=== PATIENT | female | born 1970 | race Caucasian/White ===

== ENCOUNTER 2017-10-05 14:30 | Inpatient (IN) | payer OTHER ==
[2017-10-05 19:30] LABS: ABS Basophils 0.1 10^3/ul (0-0.2); ABS Eosinophils 0.3 10^3/ul (0-0.6); ABS Lymphocytes 3.2 10^3/ul (1.0-4.8); ABS Neutrophils 8.4 10^3/ul (1.5-7.7); ABS Nucleated RBC 0 10^3/ul; Hematocrit 38 % (35-47); Hemoglobin 12.6 g/dl (12.0-16.0); Lymphocyte % 24.4 % (25-47); Mean Corpuscular HGB Conc 33 g/dl (31-36); Mean Corpuscular Hemoglobin 25 pg (27-31); Mean Corpuscular Volume 76 fL (80-97); Mean Platelet Volume 8 um3 (7.4-10.4); Nucleated Red Blood Cells % 0; Platelet Count 224 10^3/ul (150-450); Red Blood Count 5.06 10^6/ul (4.0-5.4); Red Cell Distribution Width 18 % (10.5-15); White Blood Count 12.9 10^3/ul (3.5-10.8)
[2017-10-05 19:39] LABS: EGFR Non-African American 108.1 (>60)
[2017-10-05] MEDS ORDERED: NS 0.9% 1000 ML* 1,000 ML IV ONE (19:48)
[2017-10-05] MEDS ORDERED: Iodixanol* (CONTRAST) 320 MG/ML 100 ML SDV IV ONE (21:33)
[2017-10-05] MEDS ORDERED: Morphine INJ* 4 MG/ML 1 ML CARPUJECT IV ONE ×2 (21:45→23:32)
--- NOTE | 2017-10-05 23:01 | ED ---
Giovany Miguel Stephanie, scribed for Ole Aldana MD on 10/05/17 at 1908 . Abdominal Pain/Female - HPI Summary HPI Summary: The pt is a 47 y/o F presenting to the ED with c/o abd pain that began 1 week ago. The abd pain is located in the LLQ and radiates into the chest. Symptoms include dizziness, SOB, nausea and diarrhea. The pt denies vomiting, dysuria and diaphoresis. - History of Current Complaint Chief Complaint: EDAbdPain Stated Complaint: LOWER LEFT ABD PAIN Time Seen by Provider: 10/05/17 19:03 Hx Obtained From: Patient Hx Last Menstrual Period: 2 weeks ago Onset/Duration: Gradual Onset, Lasting Weeks - 1, Still Present Timing: Constant Severity Currently: Moderate Pain Intensity: 8 Pain Scale Used: 0-10 Numeric Location: Discrete At: LLQ Radiates: Yes Radiates to: Chest Aggravating Factor(s): Nothing Alleviating Factor(s): Nothing Associated Signs and Symptoms: Positive: Dizzy, Nausea, Diarrhea, Other: - SOB Allergies/Adverse Reactions: Allergies Allergy/AdvReac Type Severity Reaction Status Date / Time MS Amoxicillin Allergy Unknown Unknown Verified 04/01/15 20:38 [From Augmentin] Reaction Details MS Clavulanic Acid Allergy Unknown Unknown Verified 04/01/15 20:38 [From Augmentin] Reaction Details Adhesive Tape [Paper Tape] Allergy Rash Verified 04/01/15 20:38 MS Erythromycin Allergy GI Upset Verified 04/01/15 20:38 [Erythromycin] MS Clarithromycin AdvReac Severe GI Upset Verified 04/01/15 20:38 [From Biaxin] bee stings Allergy Unknown Flushing Uncoded 04/01/15 20:38 PMH/Surg Hx/FS Hx/Imm Hx Endocrine/Hematology History: Reports: Hx Diabetes Denies: Hx Systemic Lupus Erythematosus, Hx Thyroid Disease Cardiovascular History: Reports: Hx Hypercholesterolemia, Hx Hypertension Denies: Hx Congestive Heart Failure, Hx Pacemaker/ICD Respiratory History: Reports: Hx Chronic Obstructive Pulmonary Disease (COPD), Hx Sleep Apnea GI History: Denies: Hx Gastroesophageal Reflux Disease History: Reports: Hx Kidney Stones, Hx Renal Disease - RENAL CALCULI Denies: Hx Dialysis Musculoskeletal History: Reports: Hx Arthritis - KNEES,HIPS,BACK, Hx Back Problems - chronic low back pain, Other Musculoskeletal History - bilateral knee pain, obesity, LUMBAR DDD Denies: Hx Rheumatoid Arthritis, Hx Osteoporosis Sensory History: Reports: Hx Contacts or Glasses - GLASSES Denies: Hx Hearing Aid Opthamlomology History: Reports: Hx Contacts or Glasses - GLASSES Neurological History: Reports: Hx Migraine - 1/MONTH Denies: Hx Dementia, Hx Seizures Psychiatric History: Reports: Hx Anxiety - prn Xanax, Hx Depression - Celexa, Other Psychiatric Issues/Disorders - 2 month period of homeless Denies: Hx Substance Abuse - Cancer History Hx Chemotherapy: No - Surgical History Surgery Procedure, Year, and Place: tubal ligation 1998. L BREAST I+D MASTITIS (MRSA). TONSILLECTOMY A CHILD. CHOLECYSTECTOMY Hx Anesthesia Reactions: No Infectious Disease History: No Infectious Disease History: Reports: Hx of Known/Suspected MRSA Denies: Hx Clostridium Difficile, Hx Hepatitis, Hx Human Immunodeficiency Virus (HIV), Hx Shingles, Hx Tuberculosis, Hx Known/Suspected VRE, Hx Known/ Suspected VRSA, History Other Infectious Disease, Traveled Outside the in Last 30 Days - Family History Known Family History: Positive: Cardiac Disease, Diabetes - Social History Occupation: Unemployed Lives: With Family Alcohol Use: None Substance Use Type: Reports: None Substance Use Comment - Amount & Last Used: uses a few times per year per patient Smoking Status (MU): Heavy Every Day Tobacco Smoker Type: Cigarettes Amount Used/How Often: >1/2 ppd Length of Time of Smoking/Using Tobacco: 30 YRS Have You Smoked in the Last Year: Yes Review of Systems Negative: Fever, Skin Diaphoresis Positive: Chest Pain Positive: Shortness Of Breath Positive: Abdominal Pain, Diarrhea, Nausea. Negative: Vomiting Negative: dysuria Neurological: Other - dizziness All Other Systems Reviewed And Are Negative: Yes Physical Exam - Summary Physical Exam Summary: Appearance: Well-appearing, Well-nourished Skin: Warm, Dry, No rash Eyes: Normal, PERRL, EOMI, sclera anicteric ENT: Normal Neck: Supple, nontender Respiratory: Clear to auscultation Cardiovascular: S1, S2, no murmur, no rub, no gallop Abdomen: Mild LLQ tenderness, no organomegaly Bowel sounds: Present Musculoskeletal: Normal, Strength/ROM Intact, no edema, pulses symmetrical Neurological: Normal, A&Ox3, cranial nerves II-XII WNL, follows commands, gait not tested, sensation intact to pin and light touch Psychiatric: affect normal, behavior appropriate, dressed appropriately, judgment intact Triage Information Reviewed: Yes Vital Signs On Initial Exam: Initial Vitals Temp Pulse Resp BP Pulse Ox 98.3 F 84 20 151/95 98 10/05/17 14:33 10/05/17 14:33 10/05/17 14:33 10/05/17 14:33 10/05/17 14:33 Vital Signs Reviewed: Yes Diagnostics - Vital Signs Vital Signs Temp Pulse Resp BP Pulse Ox 10/05/17 16:16 97.9 F 82 20 130/67 97 10/05/17 14:33 98.3 F 84 20 151/95 98 - Laboratory Result Diagrams: 10/05/17 19:15 10/05/17 19:15 Lab Statement: Any lab studies that have been ordered have been reviewed, and results considered in the medical decision making process. Abdominal Pain Fem Course/Dx - Course Course Of Treatment: Persistant pain requiring morphone. Awaiting urine. CT scan shows possible mass in the uterus and diverticilitis. Awaiting official CT reading. The pt will be a sign out to Dr. Castro at shift change. - Diagnoses Provider Diagnoses: Diverticulitis Discharge - Discharge Plan Condition: Stable Disposition: OTHER Discharge Disposition Comment: The pt will be a sign out to Dr. Castro at shift change. Referrals: Jo RODGERSPAdelia [Primary Care Provider] - The documentation as recorded by the Giovany fernandez Stephanie accurately reflects the service I personally performed and the decisions made by me, Ole Aldana MD.
[2017-10-06] MEDS ORDERED: Morphine INJ* 4 MG/ML 1 ML CARPUJECT IV ONE (00:36)
[2017-10-06] MEDS ORDERED: metroNIDAZOLE IV 500 MG/100ML* 500 MG/100 ML BAG IVPB ONE (00:37)
[2017-10-06] MEDS ORDERED: Levofloxacin 500 MG IVPREMIX(* 500 MG/100 ML BAG IVPB ONE (00:37)
--- NOTE | 2017-10-06 01:29 | ED ---
Tres Miguel Gabriel, scribed for Ling Castro MD on 10/06/17 at 0116 . Progress - Progress Note Progress Note: This patient was signed out from Dr. Aldana, pending disposition, awaiting CT. CT reveals acute sigmoid diverticulitis. We discussed patient care with Dr. Gutierrez and they accepted the patient for admittance Re-Evaluation - Re-Evaluation First Eval Re-Evaluation Time: 00:22 Change: Unchanged - Patient is still in pain. She reports significant pain in LLQ. Course/Dx - Course Course Of Treatment: This patient was signed out from Dr. Aldana, pending disposition, awaiting CT. CT reveals acute sigmoid diverticulitis. We discussed patient care with Dr. Gutierrez and they accepted the patient for admittance - Diagnoses Provider Diagnoses: Diverticulitis - Provider Notifications Discussed Care Of Patient With: Daria Gutierrez Time Discussed With Above Provider: 01:15 Instructed by Provider To: Admit As Inpatient The documentation as recorded by the Tres fernandez Gabriel accurately reflects the service I personally performed and the decisions made by Gloria pavon Abdul, MD.
[2017-10-06 02:27] LABS: Urine Appearance Clear; Urine Blood Negative (Negative); Urine Color Yellow; Urine Ketones Negative (Negative); Urine Protein Negative (Negative); Urine Specific Gravity > 1.060 (1.010-1.030); Urine Urobilinogen Negative (Negative)
[2017-10-06] MEDS ORDERED: Mouth Piece, Nicotine* 1 EACH CARTRIDGE INH PRN ×2 (02:51)
[2017-10-06] MEDS ORDERED: Dextrose 50% Syringe 50 ML* 25 GM/50 ML SYRINGE IV PUSH PRN (02:52)
[2017-10-06] MEDS ORDERED: NS 0.9% 1000 ML* 1,000 ML IV SCH (03:00)
[2017-10-06] MEDS ORDERED: Metoclopramide IV* 5 MG/ML 2 ML VIAL IV SLOW PU ONE (04:35)
[2017-10-06] MEDS: Morphine INJ* 4 MG/ML 1 ML CARPUJECT IV PRN ×4 (06:10→19:45)
--- NOTE | 2017-10-06 07:53 | RAD ---
INDICATION: Left lower quadrant pain COMPARISON: October 30, 2014 TECHNIQUE: Axial source images were obtained from the hemidiaphragms to the symphysis pubis following administration of oral and intravenous contrast. 141 mL Omnipaque 300 was utilized. Coronal and sagittal reconstructed images were acquired. Lung bases: The lung bases are clear. Liver: The liver is enlarged with findings of hepatic steatosis. There are no masses. There is no ductal dilatation. There is no focal mass or ductal dilatation Gallbladder: Cholecystectomy. Spleen: The spleen is normal in size. There are no masses. Pancreas: There is no focal pancreatic mass or ductal dilatation. Adrenal glands: There is no evidence of adrenal mass. Kidneys: The kidneys are normal in size and position. There are prompt nephrograms and there is prompt excretion bilaterally. There are no renal parenchymal masses. There is no evidence of nephrolithiasis. Adenopathy: There is no evidence of adenopathy by size criteria. Fluid collections: There are no free or localized fluid collections. Vessels:There are no significant atherosclerotic changes involving the aorta. There is no focal aneurysm. The iliac vessels are normal in caliber. The IVC appears normal. GI tract: There are no acute CT bowel findings. There is no obstruction. The stomach and small bowel appear normal. There is fluid in the left paracolic gutter with mild mucosal thickening at the level of the distal descending colon/proximal sigmoid colon. There are scattered diverticula. The CT findings are consistent with acute diverticulitis. There are no findings of obstruction or perforation. The remainder of the colon to include the appendix is normal. Pelvic organs: Uterus is unremarkable. There is a small left adnexal cyst. Bladder: There are no bladder masses. Abdominal and pelvic soft tissues: Is a tiny periumbilical hernia containing fat. There is a small right inguinal hernia containing fat. Osseous structures: There are no acute osseous findings. Other: None IMPRESSION: 1. CT findings of acute diverticulitis 2. Hepatomegaly with hepatic steatosis. 3. Cholecystectomy.
[2017-10-06 07:57] LABS: ABS Basophils 0.1 10^3/ul (0-0.2); ABS Eosinophils 0.2 10^3/ul (0-0.6); ABS Lymphocytes 2.7 10^3/ul (1.0-4.8); ABS Monocytes 0.9 10^3/ul (0-0.8); ABS Neutrophils 8.2 10^3/ul (1.5-7.7); ABS Nucleated RBC 0 10^3/ul; Eosinophil % 1.5 % (0-6); Hematocrit 41 % (35-47); Hemoglobin 13.4 g/dl (12.0-16.0); Lymphocyte % 22.2 % (25-47); Mean Corpuscular HGB Conc 33 g/dl (31-36); Mean Corpuscular Hemoglobin 25 pg (27-31); Mean Corpuscular Volume 76 fL (80-97); Mean Platelet Volume 8 um3 (7.4-10.4); Nucleated Red Blood Cells % 0.2; Platelet Count 232 10^3/ul (150-450); Red Blood Count 5.43 10^6/ul (4.0-5.4); Red Cell Distribution Width 18 % (10.5-15); White Blood Count 12.1 10^3/ul (3.5-10.8)
[2017-10-06 08:11] LABS: EGFR Non-African American 124.7 (>60)
[2017-10-06] MEDS: Insulin LISPRO* 1 UNITS UNIT SUBCUT SCH ×4 (09:38→22:23)
[2017-10-06] MEDS: metroNIDAZOLE TAB* 250 MG PO SCH (09:39)
[2017-10-06] MEDS: Nicotine PATCH 21 MG/24 HR* PATCH TRANSDERM SCH (09:39)
[2017-10-06] MEDS: metFORMIN* 1,000 MG TAB PO SCH (09:39)
[2017-10-06] MEDS: Heparin VIAL(*) 5000 UNITS/ML VIAL (FIVE THOUSAND) SUBCUT SCH ×2 (09:40→22:22)
--- NOTE | 2017-10-06 09:43 | PN ---
Hospitalist Progress Note Date of Service: 10/06/17 I have seen and examined Ms. Pinto this morning. She was admitted overnight with acute diverticulitis. Her pain is controlled at this time. She needs to stay inpatient for treatment at this time because she vomited up oral antibiotics this morning. She'd like to try full liquids today, so we will advance and if she is able to tolerate this and can keep pills down, she can complete her treatment as an outpatient.
--- NOTE | 2017-10-06 09:45 | PN ---
Hospitalist Progress Note Date of Service: 10/06/17 I discussed her poorly controlled bp with her. She is supposed to take lisinopril at home, but says she "weaned herself off" all of her medicines. She is unable to take Po at this time, but should be discontinued back on lisinopril.
[2017-10-06] MEDS: Ondansetron INJ* 2 MG/ML VIAL IV PRN ×2 (10:52→18:18)
--- NOTE | 2017-10-06 11:32 | HP ---
CC: ANTONIO Byrnes * HISTORY AND PHYSICAL: DATE OF ADMISSION: 10/06/17 PRIMARY CARE PROVIDER: Formerly, ANTONIO Byrnes at [facility]. She is to establish with a new provider there this week. CHIEF COMPLAINT: Abdominal pain. HISTORY OF PRESENT ILLNESS: Ms. Pinto is a 47-year-old female who has a history of type 2 diabetes, obstructive sleep apnea, depression and anxiety, hypertension and a past history of diverticulitis in 2007, who presents to the emergency room with complaints of abdominal pain. The patient states approximately 1 week ago, she began to have left lower quadrant abdominal pain. She states she thought it was her ovary. Eventually, the pain became so bad on 10/05/17 that she presented to the emergency room for evaluation. The patient states that she has chronic diarrhea and this is unchanged. She does note that she has had a low-grade fever. She also states that she will at one point feel very hot, then she will feel chilled. She does state that her appetite has been okay over the last couple of days. She has felt nauseous, but she has not vomited until after she received Zofran in the emergency room. The patient does note that she had several attacks of diverticulitis in 2007, but had been without issues since. PAST MEDICAL HISTORY: 1. Type 2 diabetes. 2. Obstructive sleep apnea. 3. Depression/anxiety. PAST SURGICAL HISTORY: 1. Cholecystectomy. 2. Tubal ligation. 3. Tonsillectomy. MEDICATIONS: The patient states currently she is only taking metformin 1000 mg daily. Her previous home medication list included: 1. Percocet 5/325 one tab p.o. q.4 hours p.r.n. pain. 2. Metformin 1000 mg p.o. twice daily. 3. Ambien 10 mg p.o. q.h.s. 4. Simvastatin 20 mg p.o. q.h.s. 5. Sumatriptan 25 mg p.o. daily p.r.n. migraine. 6. Orphenadrine citrate 100 mg p.o. q.h.s. 7. Zofran 4 mg p.o. q.8 hours. 8. Omeprazole 20 mg p.o. q.h.s. 9. Meloxicam 15 mg p.o. q.h.s. 10. Lisinopril 2.5 mg p.o. q.h.s. 11. Gabapentin 600 mg p.o. q.h.s. 12. Fenofibrate 145 mg p.o. q.h.s. 13. Vitamin B12 500 mcg p.o. q.h.s. 14. Celexa 60 mg p.o. q.h.s. 15. Vitamin D 1200 units p.o. q.h.s. 16. Buspirone 5 mg p.o. q.h.s. ALLERGIES: BEES, CLARITHROMYCIN, ERYTHROMYCIN, ADHESIVE TAPE, AUGMENTIN. FAMILY HISTORY: Mom at the age of 67, she had diabetes and hyperlipidemia. Dad at the age of 57 of an [place]. SOCIAL HISTORY: The patient is an active smoker of 1-pack per day. She denies any alcohol use. She uses marijuana on a daily basis. 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 She is , she has 2 children. Her , Silverio is her healthcare proxy. REVIEW OF SYSTEMS: A complete 11-system review of systems is obtained. Pertinent positives and negatives are as per HPI. In addition, the patient does state that at times she notes that it is difficult to initiate a swallow and she states this has become more noticeable recently. Additionally, she states that she has candidal rash in her skin folds. PHYSICAL EXAMINATION GENERAL: The patient is a well-developed, morbidly obese, middle-aged female, lying in the bed, in no acute distress. VITAL SIGNS: Blood pressure 137/76, pulse 79, respirations 18, temp 97.9, and O2 sat 98% on room air. HEENT: Pupils are equal and round. Extraocular muscles are intact. Oropharynx is clear. Oral mucosa is moist. The patient is edentulous on the top. There is no submandibular, cervical, or supraclavicular adenopathy. Thyroid is not enlarged. No thyroid nodules noted. PULMONARY: Lungs are clear to auscultation bilaterally. CARDIAC: Normal S1 and S2. Regular rate and rhythm. I do not appreciate any murmurs. There is no lower extremity edema. ABDOMEN: Bowel sounds are present. Abdomen is soft and nondistended. She is mildly tender to palpation in the left lower quadrant. MUSCULOSKELETAL: There is no cyanosis or clubbing of the digits. There is full active range of motion of all 4 extremities. SKIN: Warm and dry. There are no rashes. NEUROLOGIC: Cranial nerves II through XII are grossly intact. Sensation is intact to light touch throughout. Strength is 5/5 and symmetric in both upper and lower extremities bilaterally. PSYCH: The patient is alert. She is oriented x3. Affect appears appropriate. DIAGNOSTIC STUDIES/LAB DATA: WBC 12.9, hemoglobin 12.6, hematocrit 38, platelets 224. Sodium 132, potassium 3.9, chloride 102, CO2 23, BUN 10, creatinine 0.60, glucose 206, calcium 8.8. Bilirubin 0.3, AST 15, ALT 17, alk phos 87, albumin 3.7, amylase 29, and lipase 30. Urinalysis is pending. CT abdomen and pelvis reveals a segment of thickened sigmoid colon with adjacent pericolonic inflammatory stranding. There is sigmoid diverticula and findings are compatible with acute sigmoid diverticulitis. There is a minimal amount of adjacent free fluid. Additionally, there is a 2.5 cm left adnexal cyst noted. ASSESSMENT AND PLAN: Ms. Pinto is a 47-year-old female who has a past history of diverticulitis in 2007, type 2 diabetes, obstructive sleep apnea and hypertension, who presents to the emergency room with complaints of left lower quadrant abdominal pain and is found to have probable acute diverticulitis on CT scan. 1. Acute diverticulitis. The patient will be admitted and started on IV antibiotics and normal saline. The patient's symptoms appear to be relatively mild at this point. She will be started on a clear liquid diet. Her symptoms will be monitored and her diet advanced as tolerated. I suspect she will be able to be discharged home in the next 24 to 48 hours. At this point, no surgical evaluation is necessary. The patient will be on Cipro and Flagyl; however, the patient does think that she developed severe nausea and vomiting after receiving the IV Flagyl. We will try it orally; however, if she has issues with the Flagyl, a different antibiotic combination may need to be considered. 2. Type 2 diabetes. The patient will be maintained on her usual dose of metformin 1000 mg daily. Her fingersticks will be checked a.c. and h.s. and she will be placed on a lispro sliding scale. Additionally, a hemoglobin A1c will be obtained. 3. Hypertension. The patient's blood pressure is under fair control. She states that she stopped all of her oral hypertensives previously as she was not happy that she was on so many medications. Her blood pressure will be monitored and if her blood pressure starts to elevate, an antihypertensive will need to be added back. 4. Obstructive sleep apnea. The patient will be maintained on BiPAP 14/8 with 2 L of O2 with sleep. 5. DVT prophylaxis. According to the Adult Thrombosis Prophylaxis Risk Factor Assessment Guide, the patient has a total risk factor score of 2 making her moderate risk. She will be placed on heparin 5000 units subcutaneous q.12 hours. 6. Code status is full. TIME SPENT: Sixty-five minutes was spent admitting this patient. [id number]/CPS #: [id number] SCOTT
[2017-10-06] MEDS: Nicotine Inhaler* 10 MG AMP INH PRN (15:06)
[2017-10-06] MEDS ORDERED: PROCHLORPERAZINE INJ 5 MG/ML 2 ML VIAL ONE (22:09)
[2017-10-06] MEDS: PROCHLORPERAZINE INJ 5 MG/ML 2 ML VIAL IV PRN (22:14)
[2017-10-07] MEDS: metroNIDAZOLE TAB* 250 MG PO SCH ×3 (00:22→20:51)
[2017-10-07] MEDS: Ondansetron INJ* 2 MG/ML VIAL IV PRN ×4 (00:29→19:56)
[2017-10-07] MEDS: Morphine INJ* 4 MG/ML 1 ML CARPUJECT IV PRN ×5 (00:29→20:54)
[2017-10-07] MEDS ORDERED: Ciprofloxacin 400MG IVPREMIX(* 400 MG/200 ML BAG IVPB SCH (02:00)
[2017-10-07] MEDS: Nicotine Patch Removal NOTE FOLLOW UP SCH ×2 (07:31→21:44)
[2017-10-07] MEDS: Heparin VIAL(*) 5000 UNITS/ML VIAL (FIVE THOUSAND) SUBCUT SCH ×2 (07:38→20:53)
[2017-10-07] MEDS: metFORMIN* 1,000 MG TAB PO SCH (07:38)
[2017-10-07 07:39] LABS: ABS Basophils 0 10^3/ul (0-0.2); ABS Eosinophils 0.2 10^3/ul (0-0.6); ABS Lymphocytes 2.2 10^3/ul (1.0-4.8); ABS Monocytes 0.7 10^3/ul (0-0.8); ABS Nucleated RBC 0 10^3/ul; Eosinophil % 2.6 % (0-6); Hematocrit 38 % (35-47); Hemoglobin 12.4 g/dl (12.0-16.0); Mean Corpuscular HGB Conc 32 g/dl (31-36); Mean Corpuscular Hemoglobin 25 pg (27-31); Mean Corpuscular Volume 77 fL (80-97); Mean Platelet Volume 8 um3 (7.4-10.4); Nucleated Red Blood Cells % 0; Platelet Count 192 10^3/ul (150-450); Red Blood Count 4.99 10^6/ul (4.0-5.4); Red Cell Distribution Width 18 % (10.5-15); White Blood Count 8.2 10^3/ul (3.5-10.8)
[2017-10-07] MEDS: Nicotine PATCH 21 MG/24 HR* PATCH TRANSDERM SCH (07:39)
[2017-10-07 07:49] LABS: EGFR Non-African American 124.7 (>60)
[2017-10-07] MEDS: Insulin LISPRO* 1 UNITS UNIT SUBCUT SCH ×4 (08:31→21:42)
[2017-10-07] MEDS ORDERED: Magnesium Hydroxide LIQ* 30 ML UDC PO ONE (09:50)
[2017-10-07] MEDS ORDERED: Magnesium Hydroxide LIQ* 30 ML UDC PO PRN (09:50)
--- NOTE | 2017-10-07 09:59 | PN ---
Subjective Date of Service: 10/07/17 Interval History: pt c/o "gurgling" in her abd but no BM's x 3 days. continues ot have nausea but able to eat small amounts for full liquids. abd pain in LLQ Objective Active Medications: Buspirone HCl (Buspar Tab*) 5 mg PO QPM [facility] Citalopram Hydrobromide (Celexa Tab*) 60 mg PO QPM [facility] Device (Nicotine Mouth Piece*) 1 each INH .USE WITH NICOTROL PRN PRN Reason: CRAVING Last Admin: 10/06/17 15:06 Dose: 1 each Dextrose (D50w Syringe 50 Ml*) 12.5 gm IV PUSH .FOR FS < 60 - SS PRN PRN Reason: FS < 60 Gabapentin (Neurontin Cap(*)) 600 mg PO BEDTIME [facility] Heparin Sodium (Porcine) (Heparin Vial(*)) 5,000 units SUBCUT Q12HR [facility] Last Admin: 10/07/17 07:38 Dose: 5,000 units Ciprofloxacin/Dextrose (Cipro 400 Mg Ivpremix(*)) 400 mg in 200 mls @ 200 mls/ hr IVPB Q12H [facility] Last Admin: 10/07/17 02:26 Dose: 200 mls/hr Insulin Human Lispro (Humalog*) 0 units SUBCUT ACHS [facility] PRN Reason: Protocol Last Admin: 10/07/17 08:31 Dose: 6 units Magnesium Hydroxide (Milk Of Magnesia Liq*) 30 ml PO ONCE ONE Stop: 10/07/17 09:51 Magnesium Hydroxide (Milk Of Magnesia Liq*) 30 ml PO Q6H PRN PRN Reason: CONSTIPATION Metformin HCl (Glucophage*) 1,000 mg PO DAILY [facility] Last Admin: 10/07/17 07:38 Dose: 1,000 mg Metronidazole (Flagyl Tab*) 500 mg PO BID [facility] Last Admin: 10/07/17 07:38 Dose: 500 mg Morphine Sulfate (Morphine Inj (Syringe)*) 4 mg IV Q4H PRN PRN Reason: PAIN Last Admin: 10/07/17 07:38 Dose: 4 mg Nicotine (Nicotine Inhaler*) 10 mg INH Q2H PRN PRN Reason: CRAVING Last Admin: 10/06/17 15:06 Dose: 10 mg Nicotine (Nicotine Patch 21 Mg/24 Hr*) 1 patch TRANSDERM DAILY@0800 [facility] Last Admin: 10/07/17 07:39 Dose: Not Given Omeprazole (Prilosec Cap*) 20 mg PO QPM [facility] Ondansetron HCl (Zofran Inj*) 4 mg IV Q6H PRN PRN Reason: NAUSEA Last Admin: 10/07/17 07:38 Dose: 4 mg Oxycodone/Acetaminophen (Percocet 5/325 Tab*) 1 tab PO Q4H PRN PRN Reason: PAIN Pharmacy Profile Note (Nicotine Patch Removal Note*) 1 note FOLLOW UP 2100 [facility] Last Admin: 10/07/17 07:31 Dose: 1 note Prochlorperazine Edisylate (Compazine Inj*) 10 mg IV Q6H PRN PRN Reason: NAUSEA Last Admin: 10/06/17 22:14 Dose: 10 mg Zolpidem Tartrate (Ambien Tab*) 10 mg PO BEDTIME [facility] Vital Signs - 8 hr 10/07/17 10/07/17 10/07/17 03:25 04:03 07:31 Temperature 97.3 F 97.7 F Pulse Rate 62 65 Respiratory 17 14 17 Rate Blood Pressure 138/56 134/72 (mmHg) O2 Sat by Pulse 95 97 Oximetry 10/07/17 10/07/17 10/07/17 07:38 08:23 08:32 Temperature Pulse Rate Respiratory 18 18 16 Rate Blood Pressure (mmHg) O2 Sat by Pulse Oximetry Oxygen Devices in Use Now: None Appearance: 47 yo obese f in nAD, AAOx3 Eyes: No Scleral Icterus, PERRLA Ears/Nose/Mouth/Throat: NL Teeth, Lips, Gums, Mucous Membranes Moist Neck: NL Appearance and Movements; NL JVP, Trachea Midline Respiratory: Symmetrical Chest Expansion and Respiratory Effort, Clear to Auscultation Cardiovascular: NL Sounds; No Murmurs; No JVD, RRR Abdominal: - - LLQ tenderness, no rebound, no guarding, BS hypoactive Lymphatic: No Cervical Adenopathy Extremities: No Edema, No Clubbing, Cyanosis Skin: No Rash or Ulcers, No Nodules or Sclerosis Neurological: Alert and Oriented x 3, NL Muscle Strength and Tone Result Diagrams: 10/07/17 07:09 10/07/17 07:09 Microbiology and Other Data: Microbiology 10/06/17 05:45 Nasal Screen MRSA (PCR)(MANDO) - Final Nasal Mrsa Not Detected Assess/Plan/Problems-Billing Assessment: 47 yo f with h/o obesity, DM2, ALANNA with acute diverticulitis - Patient Problems (1) Acute diverticulitis of intestine Comment: cont cipro/Flagyl Tander in LLQ and still problems with PO intake Will place on inpatient Cont full liquid diet (2) Severe obstructive sleep apnea Comment: Cont CPAP (3) DM2 (diabetes mellitus, type 2) Comment: cont ISS, metformin held due to CT with contrast on 10/05/17 (4) DVT prophylaxis Comment: HSQ Status and Disposition: OBV switched to inpatient
[2017-10-07] MEDS: cefTRIAXone(*) 1 GM in D5W 50 ML BAG* 50 ML IVPB SCH (11:12)
[2017-10-07] MEDS: Omeprazole CAP* 20 MG PO SCH (17:51)
[2017-10-07] MEDS: Citalopram TAB* 40 MG PO SCH (17:52)
[2017-10-07] MEDS: busPIRone TAB* 5 MG PO SCH (17:52)
[2017-10-07] MEDS ORDERED: Citalopram TAB* 40 MG PO SCH (18:00)
[2017-10-07] MEDS: Zolpidem TAB* 10 MG PO SCH (20:52)
[2017-10-07] MEDS: Gabapentin CAP(*) 300 MG PO SCH (20:52)
[2017-10-08] MEDS: PROCHLORPERAZINE INJ 5 MG/ML 2 ML VIAL IV PRN ×3 (00:53→16:48)
[2017-10-08] MEDS: Morphine INJ* 4 MG/ML 1 ML CARPUJECT IV PRN ×3 (00:54→09:17)
[2017-10-08] MEDS: Ondansetron INJ* 2 MG/ML VIAL IV PRN ×2 (05:11→12:33)
[2017-10-08] MEDS: Insulin LISPRO* 1 UNITS UNIT SUBCUT SCH ×4 (09:12→20:48)
[2017-10-08] MEDS: Heparin VIAL(*) 5000 UNITS/ML VIAL (FIVE THOUSAND) SUBCUT SCH ×2 (09:13→20:41)
[2017-10-08] MEDS: Nicotine PATCH 21 MG/24 HR* PATCH TRANSDERM SCH (09:14)
[2017-10-08] MEDS: Nicotine Inhaler* 10 MG AMP INH PRN (09:16)
[2017-10-08] MEDS: metroNIDAZOLE TAB* 250 MG PO SCH ×2 (09:16→20:41)
--- NOTE | 2017-10-08 09:47 | PN ---
Subjective Date of Service: 10/08/17 Interval History: pt c/o occasional "pinch" in the LLQ of abd. Still "a little nauseated", but requests to have diet advanced. Had several loose BM's yesterday Objective Active Medications: Buspirone HCl (Buspar Tab*) 5 mg PO QPM [facility] Last Admin: 10/07/17 17:52 Dose: 5 mg Citalopram Hydrobromide (Celexa Tab*) 40 mg PO QPM [facility] Last Admin: 10/07/17 17:52 Dose: 40 mg Device (Nicotine Mouth Piece*) 1 each INH .USE WITH NICOTROL PRN PRN Reason: CRAVING Last Admin: 10/06/17 15:06 Dose: 1 each Dextrose (D50w Syringe 50 Ml*) 12.5 gm IV PUSH .FOR FS < 60 - SS PRN PRN Reason: FS < 60 Gabapentin (Neurontin Cap(*)) 600 mg PO BEDTIME [facility] Last Admin: 10/07/17 20:52 Dose: 600 mg Heparin Sodium (Porcine) (Heparin Vial(*)) 5,000 units SUBCUT Q12HR [facility] Last Admin: 10/08/17 09:13 Dose: 5,000 units Ceftriaxone Sodium 1 gm/ (Dextrose) 50 mls @ 200 mls/hr IVPB Q24H [facility] Last Admin: 10/07/17 11:12 Dose: 200 mls/hr Insulin Human Lispro (Humalog*) 0 units SUBCUT ACHS [facility] PRN Reason: Protocol Last Admin: 10/08/17 09:12 Dose: 3 units Magnesium Hydroxide (Milk Of Magnesia Liq*) 30 ml PO Q6H PRN PRN Reason: CONSTIPATION Metronidazole (Flagyl Tab*) 500 mg PO BID [facility] Last Admin: 10/08/17 09:16 Dose: 500 mg Morphine Sulfate (Morphine Inj (Syringe)*) 4 mg IV Q4H PRN PRN Reason: PAIN Last Admin: 10/08/17 09:17 Dose: 4 mg Nicotine (Nicotine Inhaler*) 10 mg INH Q2H PRN PRN Reason: CRAVING Last Admin: 10/08/17 09:16 Dose: 10 mg Nicotine (Nicotine Patch 21 Mg/24 Hr*) 1 patch TRANSDERM DAILY@0800 [facility] Last Admin: 10/08/17 09:14 Dose: 1 patch Omeprazole (Prilosec Cap*) 20 mg PO QPM [facility] Last Admin: 10/07/17 17:51 Dose: 20 mg Ondansetron HCl (Zofran Inj*) 4 mg IV Q6H PRN PRN Reason: NAUSEA Last Admin: 10/08/17 05:11 Dose: 4 mg Oxycodone/Acetaminophen (Percocet 5/325 Tab*) 1 tab PO Q4H PRN PRN Reason: PAIN Pharmacy Profile Note (Nicotine Patch Removal Note*) 1 note FOLLOW UP 2100 [facility] Last Admin: 10/07/17 21:44 Dose: Not Given Prochlorperazine Edisylate (Compazine Inj*) 10 mg IV Q6H PRN PRN Reason: NAUSEA Last Admin: 10/08/17 09:17 Dose: 10 mg Zolpidem Tartrate (Ambien Tab*) 10 mg PO BEDTIME [facility] Last Admin: 10/07/17 20:52 Dose: 10 mg Vital Signs - 8 hr 10/08/17 10/08/17 10/08/17 02:42 02:43 03:09 Temperature 97.7 F Pulse Rate 63 Respiratory 18 18 14 Rate Blood Pressure 167/57 (mmHg) O2 Sat by Pulse 94 Oximetry 10/08/17 10/08/17 10/08/17 05:12 06:28 08:00 Temperature Pulse Rate Respiratory 18 18 18 Rate Blood Pressure (mmHg) O2 Sat by Pulse Oximetry 10/08/17 09:17 Temperature Pulse Rate Respiratory 18 Rate Blood Pressure (mmHg) O2 Sat by Pulse Oximetry Oxygen Devices in Use Now: None Appearance: 47 obese F in NAD, AAox3 Eyes: No Scleral Icterus, PERRLA Ears/Nose/Mouth/Throat: NL Teeth, Lips, Gums, Mucous Membranes Moist Neck: NL Appearance and Movements; NL JVP, Trachea Midline Respiratory: Symmetrical Chest Expansion and Respiratory Effort, Clear to Auscultation Cardiovascular: NL Sounds; No Murmurs; No JVD, RRR Abdominal: No Hepatosplenomegaly, - - mild LLQ tenderness, no rebound, no guarding, BS+ Lymphatic: No Cervical Adenopathy Extremities: No Edema, No Clubbing, Cyanosis Skin: No Rash or Ulcers, No Nodules or Sclerosis Neurological: Alert and Oriented x 3, NL Muscle Strength and Tone Result Diagrams: 10/09/17 09:18 10/09/17 09:18 Microbiology and Other Data: Microbiology 10/06/17 05:45 Nasal Screen MRSA (PCR)(MANDO) - Final Nasal Mrsa Not Detected Assess/Plan/Problems-Billing Assessment: 47 yo f with h/o obesity, DM2, ALANNA with acute diverticulitis - Patient Problems (1) Acute diverticulitis of intestine Comment: cont Flagyl, cipro switched to Ceftriaxone due to potential interaction with pt's anidepressants Tender in LLQ , improving. will advance to regular ADA diet. (2) Severe obstructive sleep apnea Comment: Cont CPAP (3) DM2 (diabetes mellitus, type 2) Comment: cont ISS, metformin held due to CT with contrast on 10/05/17 (4) DVT prophylaxis Comment: HSQ Status and Disposition: inpatient
[2017-10-08] MEDS: cefTRIAXone(*) 1 GM in D5W 50 ML BAG* 50 ML IVPB SCH (11:04)
[2017-10-08] MEDS: oxyCODONE/Acetamin 5/325 MG* TAB PO PRN ×3 (12:33→20:47)
[2017-10-08] MEDS: busPIRone TAB* 5 MG PO SCH (16:47)
[2017-10-08] MEDS: Citalopram TAB* 40 MG PO SCH (16:48)
[2017-10-08] MEDS: Omeprazole CAP* 20 MG PO SCH (16:48)
[2017-10-08] MEDS: Gabapentin CAP(*) 300 MG PO SCH (20:40)
[2017-10-08] MEDS: Zolpidem TAB* 10 MG PO SCH (20:41)
[2017-10-08] MEDS: Nicotine Patch Removal NOTE FOLLOW UP SCH (20:43)
[2017-10-09] MEDS: oxyCODONE/Acetamin 5/325 MG* TAB PO PRN ×3 (00:52→09:32)
[2017-10-09] MEDS: PROCHLORPERAZINE INJ 5 MG/ML 2 ML VIAL IV PRN (08:10)
[2017-10-09] MEDS: Nicotine PATCH 21 MG/24 HR* PATCH TRANSDERM SCH (08:15)
[2017-10-09] MEDS: Heparin VIAL(*) 5000 UNITS/ML VIAL (FIVE THOUSAND) SUBCUT SCH (08:25)
[2017-10-09] MEDS: Insulin LISPRO* 1 UNITS UNIT SUBCUT SCH (08:26)
[2017-10-09] MEDS: metroNIDAZOLE TAB* 250 MG PO SCH (08:28)
[2017-10-09 09:14] VITALS: BP 141/64
[2017-10-09 09:33] LABS: ABS Basophils 0 10^3/ul (0-0.2); ABS Eosinophils 0.2 10^3/ul (0-0.6); ABS Monocytes 0.6 10^3/ul (0-0.8); ABS Neutrophils 4.5 10^3/ul (1.5-7.7); ABS Nucleated RBC 0 10^3/ul; Eosinophil % 2.4 % (0-6); Hematocrit 39 % (35-47); Hemoglobin 12.6 g/dl (12.0-16.0); Lymphocyte % 27.3 % (25-47); Mean Corpuscular HGB Conc 33 g/dl (31-36); Mean Corpuscular Hemoglobin 25 pg (27-31); Mean Corpuscular Volume 77 fL (80-97); Mean Platelet Volume 8 um3 (7.4-10.4); Nucleated Red Blood Cells % 0; Platelet Count 198 10^3/ul (150-450); Red Blood Count 5.05 10^6/ul (4.0-5.4); Red Cell Distribution Width 18 % (10.5-15); White Blood Count 7.3 10^3/ul (3.5-10.8)
[2017-10-09 09:44] LABS: EGFR Non-African American 102.2 (>60)
[2017-10-09] MEDS: cefTRIAXone(*) 1 GM in D5W 50 ML BAG* 50 ML IVPB SCH (11:04)
--- NOTE | 2017-10-10 02:36 | DS ---
DISCHARGE SUMMARY: DATE OF ADMISSION: 10/06/17 DATE OF DISCHARGE: 10/09/17 PRIMARY CARE PROVIDER: Formerly, Adelia Osorio NP in [facility]. She is now going to follow up with another provider at [facility]. DISCHARGE DIAGNOSIS: Acute diverticulitis. SECONDARY DIAGNOSES: 1. Diabetes. 2. Obstructive sleep apnea. 3. Depression/anxiety. MEDICATIONS AT DISCHARGE: Include: 1. Cefdinir 300 mg p.o. b.i.d. for 10 days total. 2. Flagyl 500 mg p.o. 3 times a day for 10 days total. 3. Gabapentin 600 mg p.o. q.h.s. 4. Percocet 1 tablet every 4 hours p.r.n. pain. The patient was prescribed a total of 20 tablets. I-STOP was checked. Last time she had a narcotic prescription was in May 2017. 5. Zofran 4 mg every 8 hours p.r.n. 6. Omeprazole 20 mg daily. 7. Metformin 1000 mg b.i.d. Please note that the patient stated that most of her medications that she admitted to taking at the admission she actually is not taking and most of them were at this point discontinued since the patient was not interested in taking them anyway and those included: 1. Celexa. 2. Simvastatin. 3. Ambien. 4. Orphenadrine. 5. Meloxicam. 6. Lisinopril. 7. Fenofibrate. 8. Vitamin B12. 9. Vitamin D. 10. BuSpar. The patient is to follow up with her primary care provider of her choice to reestablish care and to decide if she is planning to take some more of the medications. LABORATORY DATA: During the hospital stay included: On 10/07/17, white blood cell count of 8.2, hemoglobin 12.4, hematocrit 38, and platelets 192. Sodium 133, potassium 3.8, chloride 103, carbon dioxide 26, BUN 5, creatinine 0.53. The patient's hemoglobin A1c was 9.2 on 10/05/17. Microbiology study showed stool cultures that are still pending at the time of dictation. The patient had CT of abdomen and pelvis obtained on 10/05/17, impression: "CT findings of acute diverticulitis. Hepatomegaly with hepatic steatosis. Cholecystectomy." HOSPITALIZATION COURSE: Parth Pinto is a 47-year-old female with history of obesity and BMI of 51 as well as diabetes and dyslipidemia who presented to the hospital complaining of abdominal pain. For further details of the patient's presentation, please see history and physical dictated at admission. Shortly, the patient's stay was complicated by continuous nausea and abdominal pain in the left lower quadrant. By the time of discharge, her abdominal pain nearly resolved and she tolerated regular diet. She is going to be discharged home with recommendations to follow up with her primary care provider at [facility]. PHYSICAL EXAM AT THE TIME OF DISCHARGE: Blood pressure of 141/64, heart rate of 61 and regular, respiratory rate 16, oxygen saturation 95% on room air, temperature 97.3. General: The patient is a very pleasant 47-year-old female, who is in no acute distress. Alert, awake and oriented x3. HEENT: Head atraumatic, normocephalic. Eyes: Pupils are equal and reactive to light and accommodation. Oropharynx clear. Mucosa moist. Neck: Supple. No JVD. No bruits bilaterally. Cardiovascular: Regular rate and rhythm. No murmur. Respiratory: Clear to auscultation bilaterally. Abdomen: Soft, minimally tender in the left lower quadrant with no rebound, no guarding. Bowel sounds are present in all 4 quadrants. Extremities: There is no edema. Pulses are 2 + bilaterally. No clubbing or cyanosis. On evaluation of the skin, no ecchymotic areas or rashes noted. On neuro evaluation, speech is clear. Cranial nerves II through XII grossly intact. Motor strength is 5/5 bilaterally. Please note that this is a short summary of the patient's hospitalization, please refer to further medical records for details. TIME SPENT: Approximately 40 minutes were spent on the patient's discharge. [id number]/[facility] #: [id number] MTDD
== END 2017-10-09 12:10 | disposition home health service (06) | DRG 244 ==
LOC: ED 14:30 → MED 10-06 02:49 → OBSVTOIN 10-07 09:50
PROVIDERS: ADMIT Hospitalist; ATTEND Internal Medicine
DX: K57.32 Diverticulitis of large intestine without perforation or abscess without bleeding (principal); E27.8 Other specified disorders of adrenal gland; E66.01 Morbid (severe) obesity due to excess calories; K76.0 Fatty (change of) liver, not elsewhere classified; Z68.43 Body mass index [BMI] 50.0-59.9, adult; R16.0 Hepatomegaly, not elsewhere classified; E11.9 Type 2 diabetes mellitus without complications; G47.33 Obstructive sleep apnea (adult) (pediatric); F41.9 Anxiety disorder, unspecified; F32.9 Major depressive disorder, single episode, unspecified; I10 Essential (primary) hypertension; J44.9 Chronic obstructive pulmonary disease, unspecified; G89.29 Other chronic pain; M17.0 Bilateral primary osteoarthritis of knee; M47.9 Spondylosis, unspecified; G43.909 Migraine, unspecified, not intractable, without status migrainosus; F17.210 Nicotine dependence, cigarettes, uncomplicated; E78.00 Pure hypercholesterolemia, unspecified; M54.9 Dorsalgia, unspecified; Z90.49 Acquired absence of other specified parts of digestive tract; Z82.49 Family history of ischemic heart disease and other diseases of the circulatory system; Z83.3 Family history of diabetes mellitus; Z56.0 Unemployment, unspecified; Z88.1 Allergy status to other antibiotic agents; Z91.040 Latex allergy status; Z87.442 Personal history of urinary calculi; Z98.51 Tubal ligation status; Z86.14 Personal history of Methicillin resistant Staphylococcus aureus infection; Z79.84 Long term (current) use of oral hypoglycemic drugs; Z91.030 Bee allergy status
CPT/HCPCS: 36415; 74177; 80048; 80053; 81003; 82150; 83036; 83690; 85025; 86140; 87045; 87046; 87641; 87899; 94660; 94760; 96374; 99285; A9270-GY; G0378; J0696; J0744; J0780; J1644; J1956; J2270; J2405; J2765; J3490; Q9967

== ENCOUNTER 2018-09-05 12:57 | Emergency (ER) | payer OTHER ==
[2018-09-05 14:14] LABS: Hematocrit 43 % (35-47); Hemoglobin 14.2 g/dl (12.0-16.0); Mean Corpuscular HGB Conc 33 g/dl (31-36); Mean Corpuscular Hemoglobin 25 pg (27-31); Mean Corpuscular Volume 78 fL (80-97); Mean Platelet Volume 8.4 fL (7.4-10.4); Platelet Count 207 10^3/ul (150-450); Red Cell Distribution Width 17 % (10.5-15)
[2018-09-05 14:43] LABS: Albumin 4.2 g/dL (3.2-5.2); Albumin/Globulin Ratio 1.4 (1-3); BUN/Creatinine Ratio 12.7 (8-20); Calcium 9.1 mg/dL (8.6-10.3); EGFR Non-African American 101.7 (>60); Globulin 2.9 g/dL (2-4); Potassium 4.1 mmol/L (3.5-5.0); Total Bilirubin 0.3 mg/dL (0.2-1.0); Total Protein 7.1 g/dL (6.4-8.9)
[2018-09-05] MEDS ORDERED: Morphine VIAL* 4 MG/ML VIAL (1 ml vial) IV ONE ×2 (14:51→16:06)
[2018-09-05] MEDS ORDERED: Ondansetron INJ* 2 MG/ML VIAL IV ONE ×2 (14:51→16:06)
[2018-09-05] MEDS ORDERED: NS 0.9% 1000 ML* 1,000 ML IV ONE (14:52)
--- NOTE | 2018-09-05 14:54 | ED ---
GI/ HPI - HPI Summary HPI Summary: 48-year-old female presents with abdominal pain today. States she had some bloody stool. it was just streaks of blood. States she's had looser stools. She admits nausea but denies any vomiting. States feels similar to her diverticulitis pain she has had in the past. She states her last episode was last year. She states she is also having pain that radiates up to her chest. It is located on the left side of her chest. She states it is like twinges of pain. She has history of chest pain. She admits occasional shortness of breath. She denies any palpitations. No sore throat. No fever. Has had her gallbladder removed. Has a history of diabetes. - History of Current Complaint Chief Complaint: EDAbdPain Time Seen by Provider: 09/05/18 14:41 Stated Complaint: BLOOD IN STOOL/CRAMPS/CHEST PAIN Hx Last Menstrual Period: 2 weeks ago Pain Intensity: 7 - Additional Pertinent History Primary Care Physician: KILEY - Allergy/Home Medications Allergies/Adverse Reactions: Allergies Allergy/AdvReac Type Severity Reaction Status Date / Time Adhesive Tape [Paper Tape] Allergy Rash Verified 09/05/18 13:09 amoxicillin [From Augmentin] Allergy Unknown Verified 09/05/18 13:09 Reaction Details clavulanic acid Allergy Unknown Verified 09/05/18 13:09 [From Augmentin] Reaction Details clarithromycin [From Biaxin] AdvReac Severe GI Upset Verified 09/05/18 13:09 erythromycin base AdvReac GI Upset Verified 09/05/18 13:09 bee stings Allergy Unknown Flushing Uncoded 09/05/18 13:09 Home Medications: Home Medications Cetirizine* [ZyrTEC 10 MG TAB*] 10 mg PO DAILY 09/05/18 [History Confirmed 09/05] Dapagliflozin Propanediol [Farxiga] 5 mg PO DAILY 09/05/18 [History Confirmed ] Ergocalciferol (Vitamin D2) [Vitamin D2] 50,000 unit PO WEEKLY 09/05/18 [ History Confirmed 09/05/18] Gabapentin TAB(NF) [Neurontin 600 mg TAB(NF)] 600 mg PO TID 09/05/18 [History Confirmed 09/05/18] Lisinopril [Lisinopril 2.5 MG-] 2.5 mg PO DAILY 09/05/18 [History Confirmed 03/17] Meloxicam(NF) [Mobic(NF)] 15 mg PO DAILY WITH MEAL 09/05/18 [History Confirmed 09/05/18] Metformin ER (NF) 1,000 mg PO BID 09/05/18 [History Confirmed 09/05/18] Simvastatin TAB(NF) [Zocor(NF)] 20 mg PO BEDTIME 09/05/18 [History Confirmed 03/17] hydrOXYzine HCL TAB* [Atarax 25 MG TAB*] 25 mg PO BID PRN 09/05/18 [History Confirmed 09/05/18] PMH/Surg Hx/FS Hx/Imm Hx Endocrine/Hematology History: Reports: Hx Diabetes Denies: Hx Systemic Lupus Erythematosus, Hx Thyroid Disease Cardiovascular History: Reports: Hx Hypercholesterolemia, Hx Hypertension Denies: Hx Congestive Heart Failure, Hx Pacemaker/ICD Respiratory History: Reports: Hx Chronic Obstructive Pulmonary Disease (COPD), Hx Sleep Apnea - CPAP GI History: Reports: Hx Diverticulosis Denies: Hx Gastroesophageal Reflux Disease History: Reports: Hx Kidney Stones, Hx Renal Disease - RENAL CALCULI Denies: Hx Dialysis Musculoskeletal History: Reports: Hx Arthritis - KNEES,HIPS,BACK, Hx Back Problems - chronic low back pain, Other Musculoskeletal History - bilateral knee pain, obesity, LUMBAR DDD Denies: Hx Rheumatoid Arthritis, Hx Osteoporosis Sensory History: Reports: Hx Contacts or Glasses - GLASSES, Hx Deafness - Right ear deaf Denies: Hx Hearing Aid, Other Sensory Impairments Opthamlomology History: Reports: Hx Contacts or Glasses - GLASSES Denies: Other Sensory Impairments Neurological History: Reports: Hx Migraine - 1/MONTH Denies: Hx Dementia, Hx Seizures Psychiatric History: Reports: Hx Anxiety - prn Xanax, Hx Depression - Celexa, Other Psychiatric Issues/Disorders - 2 month period of homeless Denies: Hx Substance Abuse - Cancer History Hx Chemotherapy: No - Surgical History Surgery Procedure, Year, and Place: tubal ligation 1998. L BREAST I+D MASTITIS (MRSA). TONSILLECTOMY A CHILD. CHOLECYSTECTOMY Hx Anesthesia Reactions: No Infectious Disease History: No Infectious Disease History: Reports: Hx of Known/Suspected MRSA Denies: Hx Clostridium Difficile, Hx Hepatitis, Hx Human Immunodeficiency Virus (HIV), Hx Shingles, Hx Tuberculosis, Hx Known/Suspected VRE, Hx Known/ Suspected VRSA, History Other Infectious Disease, Traveled Outside the [place] in Last 30 Days - Family History Known Family History: Positive: Cardiac Disease, Diabetes - Social History Alcohol Use: None Substance Use Type: Reports: Marijuana Substance Use Comment - Amount & Last Used: uses a few times per year per patient Smoking Status (MU): Heavy Every Day Tobacco Smoker Type: Cigarettes Amount Used/How Often: >1/2 ppd Length of Time of Smoking/Using Tobacco: 30 YRS Have You Smoked in the Last Year: Yes Review of Systems Negative: Fever Negative: Chest Pain Negative: Shortness Of Breath Positive: Abdominal Pain, Diarrhea, Nausea, Other - bloody stool. Negative: Vomiting All Other Systems Reviewed And Are Negative: Yes Physical Exam Triage Information Reviewed: Yes Vital Signs On Initial Exam: Initial Vitals Temp Pulse Resp BP Pulse Ox 99.2 F 81 20 163/86 99 09/05/18 13:05 09/05/18 13:05 09/05/18 13:05 09/05/18 13:05 09/05/18 13:05 Vital Signs Reviewed: Yes Appearance: Positive: Well-Appearing Skin: Positive: Warm, Dry Head/Face: Positive: Normal Head/Face Inspection Eyes: Positive: Normal, Conjunctiva Clear ENT: Positive: Pharynx normal Respiratory/Lung Sounds: Positive: Clear to Auscultation, Breath Sounds Present Cardiovascular: Positive: Normal, RRR Abdomen Description: Positive: Soft, Other: - tenderness LLQ, no rebound Bowel Sounds: Positive: Present Musculoskeletal: Positive: Normal Neurological: Positive: Normal Psychiatric: Positive: Normal Diagnostics - Vital Signs Vital Signs Temp Pulse Resp BP Pulse Ox 09/05/18 13:05 99.2 F 81 20 163/86 99 - Laboratory Lab Results: Lab Results 09/05/18 09/05/18 Range/Units 13:12 13:12 WBC 16.0 H (3.5-10.8) 10^3/ul RBC 5.60 H (4.00-5.40) 10^6/ul Hgb 14.2 (12.0-16.0) g/dl Hct 43 (35-47) % MCV 78 L (80-97) fL MCH 25 L (27-31) pg MCHC 33 (31-36) g/dl RDW 17 H (10.5-15) % Plt Count 207 (150-450) 10^3/ul MPV 8.4 (7.4-10.4) fL Sodium 135 (135-145) mmol/L Potassium 4.1 (3.5-5.0) mmol/L Chloride 102 (101-111) mmol/L Carbon Dioxide 26 (22-32) mmol/L Anion Gap 7 (2-11) mmol/L BUN 8 (6-24) mg/dL Creatinine 0.63 (0.51-0.95) mg/dL Est GFR ( Amer) 123.1 (>60) Est GFR (Non-Af Amer) 101.7 (>60) BUN/Creatinine Ratio 12.7 (8-20) Glucose 190 H (70-100) mg/dL Calcium 9.1 (8.6-10.3) mg/dL Total Bilirubin 0.30 (0.2-1.0) mg/dL AST 16 (13-39) U/L ALT 19 (7-52) U/L Alkaline Phosphatase 97 (34-104) U/L Total Protein 7.1 (6.4-8.9) g/dL Albumin 4.2 (3.2-5.2) g/dL Globulin 2.9 (2-4) g/dL Albumin/Globulin Ratio 1.4 (1-3) Result Diagrams: 09/05/18 13:12 09/05/18 13:12 Lab Statement: Any lab studies that have been ordered have been reviewed, and results considered in the medical decision making process. - CT abd CT Interpretation Completed By: Radiologist Summary of CT Findings: IMPRESSION: #. The constellation of findings is most consistent with acute diverticulitis at the. proximal sigmoid colon. Moderate perienteric inflammatory change and potential few tiny. foci of extra enteric gas without evidence for a loculated peritoneal abscess collection. Negative for ascites. Negative for resulting bowel obstruction. #. This current site of acute diverticulitis represents a different site of diverticulitis. compared with the more proximal inflammation on the October 05, 2017 exam. - EKG No standard instances Cardiac Rate: NL EKG Rhythm: Sinus Rhythm EKG Comparison: No Significant Change Summary of EKG Findings: sinus rhythm Re-Evaluation - Re-Evaluation First Eval Re-Evaluation Time: 16:06 Change: Improved Comment: feeling better but pain is returning GIGU Course/Dx - Course Course Of Treatment: 48-year-old female presents with abdominal pain today. States she had some bloody stool. it was just streaks of blood. States she's had looser stools. She admits nausea but denies any vomiting. States feels similar to her diverticulitis pain she has had in the past. She states her last episode was last year. She states she is also having pain that radiates up to her chest. It is located on the left side of her chest. She states it is like twinges of pain. She has history of chest pain. She admits occasional shortness of breath. She denies any palpitations. No sore throat. No fever. on exam tenderness LLQ. no hemorrhoids or blood seen on rectal. hemoccult is negative. wbc 16. hemoglobin and hemocrat normal. troponin zero. lipase normal. crp elevated. CT shows diverticultitis. discussed with patient and patient would like to be admitted. discussed with dr colorado who says that should try a trial of outpatient care and follow up with primary. discussed with patient and patient says will try oral medications trial. gave pain medication and will placed on cipro and flagyl. patient understand and agrees with plan. - Diagnoses Differential Diagnoses - Female: Colitis, Diverticulitis, Urinary Tract Infection Provider Diagnoses: Diverticulitis Discharge - Sign-Out/Discharge Documenting (check all that apply): Patient Departure - Discharge Plan Condition: Good Disposition: HOME Prescriptions: Ciprofloxacin TAB* [Cipro 500 MG TAB*] 500 mg PO BID #19 tab HYDROcodone/ACETAMIN 5-325 MG* [[place] 5-325 TAB*] 1 tab PO Q6H PRN #16 tab MDD 4 PRN Reason: Pain metroNIDAZOLE [Flagyl 500 MG TAB] 500 mg PO TID #29 tab Ondansetron ODT TAB* [Zofran 4 MG Odt TAB*] 4 mg PO Q6H PRN #16 tab.odt PRN Reason: Nausea Patient Education Materials: Diverticulitis (ED) Referrals: Lia Frye [Primary Care Provider] - Additional Instructions: Take ciprofloxacin twice a day for 10 days, first dose given in ED Take Flagyl every 8 hours for 10 days, first dose given in ED Take Zofran every 6 hours for nausea Follow clear liquid diet until symptoms improve take norco every 6 hours for pain follow up with primary Return to ED if unable to keep anything down, develop fever, or any new or worsening symptoms - Billing Disposition and Condition Condition: GOOD Disposition: Home
[2018-09-05] MEDS ORDERED: Iodixanol* (CONTRAST) 320 MG/ML 100 ML SDV IV ONE (15:05)
[2018-09-05 15:15] LABS: C Reactive Protein 18.26 mg/L (<8.01)
[2018-09-05 15:32] LABS: Urine Appearance Clear; Urine Bacteria Absent (Absent); Urine Bilirubin Negative (Negative); Urine Blood 3+ (Negative); Urine Color Yellow; Urine Glucose 3+(>=500 mg/dL) (Negative); Urine Ketones Negative (Negative); Urine Nitrite Negative (Negative); Urine Protein Negative (Negative); Urine Red Blood Cell 3+(>10/hpf) (Absent); Urine Specific Gravity 1.009 (1.010-1.030); Urine Urobilinogen Negative (Negative); Urine White Blood Cell Trace(0-5/hpf) (Absent)
[2018-09-05] MEDS ORDERED: Ketorolac INJ* 30 MG/ML 1 ML VIAL IV PUSH ONE (17:13)
[2018-09-05] MEDS ORDERED: Ciprofloxacin 400MG IVPREMIX(* 400 MG/200 ML BAG IVPB ONE (17:30)
[2018-09-05] MEDS ORDERED: metroNIDAZOLE IV 500 MG/100ML* 500 MG/100 ML BAG IVPB ONE (17:32)
[2018-09-05] MEDS ORDERED: Ondansetron ODT TAB* 4 MG PO ONE (18:06)
[2018-09-05 19:43] VITALS: BP 155/72
--- NOTE | 2018-09-07 07:05 | ED ---
Progress - Progress Note Progress Note: Pt's prelim urine cx reveals 10-25,000 strep dysgalactiae. Dx'd w/ diverticulitis and started on cipro and flagyl. No change in rx. Re-Evaluation - Re-Evaluation First Eval Re-Evaluation Time: 16:06 Change: Improved Comment: feeling better but pain is returning Course/Dx - Course Course Of Treatment: 48-year-old female presents with abdominal pain today. States she had some bloody stool. it was just streaks of blood. States she's had looser stools. She admits nausea but denies any vomiting. States feels similar to her diverticulitis pain she has had in the past. She states her last episode was last year. She states she is also having pain that radiates up to her chest. It is located on the left side of her chest. She states it is like twinges of pain. She has history of chest pain. She admits occasional shortness of breath. She denies any palpitations. No sore throat. No fever. on exam tenderness LLQ. no hemorrhoids or blood seen on rectal. hemoccult is negative. wbc 16. hemoglobin and hemocrat normal. troponin zero. lipase normal. crp elevated. CT shows diverticultitis. discussed with patient and patient would like to be admitted. discussed with dr colorado who says that should try a trial of outpatient care and follow up with primary. discussed with patient and patient says will try oral medications trial. gave pain medication and will placed on cipro and flagyl. patient understand and agrees with plan. - Diagnoses Provider Diagnoses: Diverticulitis Discharge - Sign-Out/Discharge Documenting (check all that apply): Post-Discharge Follow Up - Discharge Plan Condition: Good Disposition: HOME Prescriptions: Ciprofloxacin TAB* [Cipro 500 MG TAB*] 500 mg PO BID #19 tab HYDROcodone/ACETAMIN 5-325 MG* [[place] 5-325 TAB*] 1 tab PO Q6H PRN #16 tab MDD 4 PRN Reason: Pain metroNIDAZOLE [Flagyl 500 MG TAB] 500 mg PO TID #29 tab Ondansetron ODT TAB* [Zofran 4 MG Odt TAB*] 4 mg PO Q6H PRN #16 tab.odt PRN Reason: Nausea Patient Education Materials: Diverticulitis (ED) Referrals: Lia Frye [Primary Care Provider] - Additional Instructions: Take ciprofloxacin twice a day for 10 days, first dose given in ED Take Flagyl every 8 hours for 10 days, first dose given in ED Take Zofran every 6 hours for nausea Follow clear liquid diet until symptoms improve take norco every 6 hours for pain follow up with primary Return to ED if unable to keep anything down, develop fever, or any new or worsening symptoms - Billing Disposition and Condition Condition: GOOD Disposition: Home
== END 2018-09-05 19:45 | disposition home or self-care (01) ==
LOC: ED 12:57
DX: K57.92 Diverticulitis of intestine, part unspecified, without perforation or abscess without bleeding (principal); E11.8 Type 2 diabetes mellitus with unspecified complications; Z79.84 Long term (current) use of oral hypoglycemic drugs; I10 Essential (primary) hypertension; E78.00 Pure hypercholesterolemia, unspecified; Z87.442 Personal history of urinary calculi; K21.9 Gastro-esophageal reflux disease without esophagitis; F41.9 Anxiety disorder, unspecified; F32.9 Major depressive disorder, single episode, unspecified; F17.210 Nicotine dependence, cigarettes, uncomplicated
CPT/HCPCS: 36415; 74177; 80053; 81003; 81015; 82272; 83690; 84484; 85027; 86140; 87086; 87088; 93005; 96361; 96374; 96375; 96376; 99284; A9270-GY; J0744; J1885; J2270; J2405; J3490; Q9967

== ENCOUNTER 2018-12-07 17:57 | Emergency (ER) | payer OTHER ==
[2018-12-07 19:17] LABS: Urine Appearance Cloudy; Urine Bilirubin Negative (Negative); Urine Blood Negative (Negative); Urine Color Yellow; Urine Glucose 3+(>=500 mg/dL) (Negative); Urine Ketones Negative (Negative); Urine Nitrite Negative (Negative); Urine Protein Negative (Negative); Urine Specific Gravity 1.029 (1.010-1.030); Urine Urobilinogen Negative (Negative)
[2018-12-07 19:18] LABS: ABS Basophils 0.1 10^3/ul (0-0.2); ABS Eosinophils 0.2 10^3/ul (0-0.6); ABS Lymphocytes 3.2 10^3/ul (1.0-4.8); ABS Monocytes 0.6 10^3/ul (0-0.8); ABS Neutrophils 5.8 10^3/ul (1.5-7.7); ABS Nucleated RBC 0 10^3/ul; Eosinophil % 1.7 %; Hematocrit 41 % (33-41); Hemoglobin 13.5 g/dL (12.0-16.0); Lymphocyte % 32.6 %; Mean Corpuscular HGB Conc 33 g/dL (31-36); Mean Corpuscular Hemoglobin 26 pg (27-31); Mean Corpuscular Volume 80 fL (80-97); Mean Platelet Volume 8.3 fL (7.4-10.4); Nucleated Red Blood Cells % 0; Platelet Count 219 10^3/uL (150-450); Red Blood Count 5.11 10^6 /uL (3.70-4.87); Red Cell Distribution Width 17 % (10.5-15); White Blood Count 9.8 10^3/uL (3.5-10.8)
--- NOTE | 2018-12-07 19:18 | ED ---
Back Pain - HPI Summary HPI Summary: Patient complains of ongoing intermittent bilateral back pain, left significantly worse than right x 1.5 months. Pain described as intermittent, progressive, worse with movement and position. Denies trauma, fever, cough, sore throat, CP, SOB, N/3/D, abdominal pain, change in urine, change in BM, vaginal symptoms. Patient states her primary care doctor sent her here to the ED for evaluation of possible kidney stones due to Januvia medication, which patient started 2 months ago. Patient states she has been here seen here for same sx on prior visits to the ED, but last two prior charts indicate abdominal pain and chest pain. 09/05/18 CT abdomen and pelvis positive for diverticulitis with prescription for hydrocodone, Cipro, Flagyl. 09/30/18 complaint was abdominal pain, chest pain, diagnosed with gastritis, Rx for hydrocodone and omeprazole. Medical history is DM to, neuropathy, chronic neck and back pain, HDL, HTN. - History of Current Complaint Chief Complaint: EDFlankPain Stated Complaint: LT SIDE KIDNEY PAIN PER PT Time Seen by Provider: 12/07/18 18:49 Hx Obtained From: Patient Hx Last Menstrual Period: 2 weeks ago Onset/Duration: Gradual Onset, Lasting Weeks, Still Present Onset/Duration: Started Weeks Ago Timing: Intermittent Back Pain Location: Is Discrete @ Severity Initially: Mild Severity Currently: Severe Pain Intensity: 10 Pain Scale Used: 0-10 Numeric Character: Sharp, Aching Aggravating Symptom(s): Movement Alleviating Symptom(s): Rest Associated Signs And Symptoms: Positive: Negative - Allergies/Home Medications Allergies/Adverse Reactions: Allergies Allergy/AdvReac Type Severity Reaction Status Date / Time Adhesive Tape [Paper Tape] Allergy Rash Verified 12/07/18 18:16 amoxicillin [From Augmentin] Allergy Unknown Verified 12/07/18 18:16 Reaction Details clavulanic acid Allergy Unknown Verified 12/07/18 18:16 [From Augmentin] Reaction Details dapagliflozin [From Farxiga] Allergy See Comment Verified 12/07/18 18:16 clarithromycin [From Biaxin] AdvReac Severe GI Upset Verified 12/07/18 18:16 erythromycin base AdvReac GI Upset Verified 12/07/18 18:16 bee stings Allergy Unknown Flushing Uncoded 12/07/18 18:16 PMH/Surg Hx/FS Hx/Imm Hx Endocrine/Hematology History: Reports: Hx Diabetes Denies: Hx Systemic Lupus Erythematosus, Hx Thyroid Disease Cardiovascular History: Reports: Hx Hypercholesterolemia, Hx Hypertension Denies: Hx Congestive Heart Failure, Hx Pacemaker/ICD Respiratory History: Reports: Hx Chronic Obstructive Pulmonary Disease (COPD), Hx Sleep Apnea - CPAP GI History: Reports: Hx Diverticulosis Denies: Hx Gastroesophageal Reflux Disease History: Reports: Hx Kidney Stones, Hx Renal Disease - RENAL CALCULI Denies: Hx Dialysis Musculoskeletal History: Reports: Hx Arthritis - KNEES,HIPS,BACK, Hx Back Problems - chronic low back pain, Other Musculoskeletal History - bilateral knee pain, obesity, LUMBAR DDD Denies: Hx Rheumatoid Arthritis, Hx Osteoporosis Sensory History: Reports: Hx Contacts or Glasses - GLASSES, Hx Deafness - Right ear deaf Denies: Hx Hearing Aid, Other Sensory Impairments Opthamlomology History: Reports: Hx Contacts or Glasses - GLASSES Denies: Other Sensory Impairments Neurological History: Reports: Hx Migraine - 1/MONTH Denies: Hx Dementia, Hx Seizures Psychiatric History: Reports: Hx Anxiety - prn Xanax, Hx Depression - Celexa, Other Psychiatric Issues/Disorders - 2 month period of homeless Denies: Hx Substance Abuse - Cancer History Hx Chemotherapy: No - Surgical History Surgery Procedure, Year, and Place: tubal ligation 1998. L BREAST I+D MASTITIS (MRSA). TONSILLECTOMY A CHILD. CHOLECYSTECTOMY Hx Anesthesia Reactions: No Infectious Disease History: No Infectious Disease History: Reports: Hx of Known/Suspected MRSA Denies: Hx Clostridium Difficile, Hx Hepatitis, Hx Human Immunodeficiency Virus (HIV), Hx Shingles, Hx Tuberculosis, Hx Known/Suspected VRE, Hx Known/ Suspected VRSA, History Other Infectious Disease, Traveled Outside the [place] in Last 30 Days - Family History Known Family History: Positive: Cardiac Disease, Diabetes - Social History Alcohol Use: None Substance Use Type: Reports: Marijuana Substance Use Comment - Amount & Last Used: uses a few times per year per patient Smoking Status (MU): Heavy Every Day Tobacco Smoker Type: Cigarettes Amount Used/How Often: >1/2 ppd Length of Time of Smoking/Using Tobacco: 30 YRS Have You Smoked in the Last Year: Yes Review of Systems Constitutional: Negative Eyes: Negative ENT: Negative Cardiovascular: Negative Respiratory: Negative Gastrointestinal: Negative Genitourinary: Negative Musculoskeletal: Other Skin: Negative Neurological: Negative Psychological: Normal All Other Systems Reviewed And Are Negative: Yes Physical Exam - Summary Physical Exam Summary: Tenderness to paraspinal muscles on left side lower thoracic spine. No CVA tenderness bilaterally. No tenderness to palpation of paraspinal muscles of right side thoracic or lumbar spine. No ecchymosis, erythema, swelling, deformity, masses noted to back. No bony point tenderness on spine. PMS intact distally on bilateral lower extremities. Abdomen soft nontender. Lung sounds clear to auscultation bilaterally. RRR. Triage Information Reviewed: Yes Vital Signs On Initial Exam: Initial Vitals Temp Pulse Resp BP Pulse Ox 98 F 75 20 158/83 98 12/07/18 18:11 12/07/18 18:11 12/07/18 18:11 12/07/18 18:11 12/07/18 18:11 Vital Signs Reviewed: Yes Appearance: Positive: Well-Appearing Skin: Positive: Warm Head/Face: Positive: Normal Head/Face Inspection Eyes: Positive: Normal Neck: Positive: Supple Respiratory/Lung Sounds: Positive: Clear to Auscultation Cardiovascular: Positive: Normal Abdomen Description: Positive: Nontender Musculoskeletal: Positive: Normal Neurological: Positive: Normal Psychiatric: Positive: Normal AVPU Assessment: Alert - [place] Coma Scale Best Eye Response: 4 - Spontaneous Best Motor Response: 6 - Obeys Commands Best Verbal Response: 5 - Oriented Coma Scale Total: 15 Diagnostics - Vital Signs Vital Signs Temp Pulse Resp BP Pulse Ox 12/07/18 18:11 98 F 75 20 158/83 98 - Laboratory Result Diagrams: 12/07/18 19:10 12/07/18 19:10 Lab Statement: Any lab studies that have been ordered have been reviewed, and results considered in the medical decision making process. Back Pain Course/Dx - Course Course Of Treatment: Patient complains of ongoing intermittent bilateral back pain, left significantly worse than right x 1.5 months. Pain described as intermittent, progressive, worse with movement and position. Denies trauma, fever, cough, sore throat, CP, SOB, N/3/D, abdominal pain, change in urine, change in BM, vaginal symptoms. Patient states her primary care doctor sent her here to the ED for evaluation of possible kidney stones due to Januvia medication, which patient started 2 months ago. Patient states she has been here seen here for same sx on prior visits to the ED, but last two prior charts indicate abdominal pain and chest pain. 09/05/18 CT abdomen and pelvis positive for diverticulitis with prescription for hydrocodone, Cipro, Flagyl. 09/30/18 complaint was abdominal pain, chest pain, diagnosed with gastritis, Rx for hydrocodone and omeprazole. Medical history is DM to, neuropathy, chronic neck and back pain, HDL, HTN. Physical exam:Tenderness to paraspinal muscles on left side lower thoracic spine. No CVA tenderness bilaterally. No tenderness to palpation of paraspinal muscles of right side thoracic or lumbar spine. No ecchymosis, erythema, swelling, deformity, masses noted to back. No bony point tenderness on spine. PMS intact distally on bilateral lower extremities. Abdomen soft nontender. Lung sounds clear to auscultation bilaterally. RRR. Vital signs within normal limits. Labs unremarkable. UA negative. Back pain significantly improved with Valium by mouth 5 mg. Diagnosis muscle spasm. Rx for same. - Diagnoses Provider Diagnoses: Muscle spasm Discharge - Sign-Out/Discharge Documenting (check all that apply): Patient Departure Patient Received Moderate/Deep Sedation with Procedure: No - Discharge Plan Condition: Stable Disposition: HOME Prescriptions: Diazepam TAB(*) [Valium TAB(*)] 5 mg PO TID PRN 2 Days #6 tab MDD 3 tabs PRN Reason: Pain Lidocaine 1 each TP Q12H 2 Days #4 adh..patch Patient Education Materials: Muscle Spasm (ED) Referrals: Lia Frye [Primary Care Provider] - Additional Instructions: Take medications as directed for muscle spasm. May also use heating pads. Rest as much as possible for the next few days. No heavy lifting. Light duty only work. Follow-up with primary care. Return to the ED for any new or worsening symptoms. - Billing Disposition and Condition Condition: STABLE Disposition: Home
[2018-12-07] MEDS: Diazepam TAB(*) 5 MG PO ONE (19:19)
[2018-12-07] MEDS: NS 0.9% 1000 ML** 1,000 ML IV ONE (19:30)
[2018-12-07 19:36] LABS: ALT 22 U/L (7-52); AST 16 U/L (13-39); Albumin 3.9 g/dL (3.2-5.2); Albumin/Globulin Ratio 1.3 (1-3); Alkaline Phosphatase 94 U/L (34-104); Anion Gap 4 mmol/L (2-11); BUN/Creatinine Ratio 12.7 (8-20); Blood Urea Nitrogen 8 mg/dL (6-24); C Reactive Protein 11.55 mg/L (<8.01); CO2 Carbon Dioxide 29 mmol/L (22-32); Calcium 9.1 mg/dL (8.6-10.3); Chloride 106 mmol/L (101-111); EGFR African American 123.1 (>60); EGFR Non-African American 101.7 (>60); Globulin 3.1 g/dL (2-4); Glucose 193 mg/dL (70-100); Potassium 3.9 mmol/L (3.5-5.0); Sodium 139 mmol/L (135-145)
[2018-12-07 19:42] LABS: HCG Pregnancy < 0.60 mIU/mL
[2018-12-07 20:25] VITALS: BP 127/82
== END 2018-12-07 20:23 | disposition home or self-care (01) ==
LOC: ED 17:57
DX: M62.830 Muscle spasm of back (principal); E11.9 Type 2 diabetes mellitus without complications; I10 Essential (primary) hypertension; E78.5 Hyperlipidemia, unspecified; F17.210 Nicotine dependence, cigarettes, uncomplicated
CPT/HCPCS: 36415; 80053; 81003; 83605; 83690; 84702; 85025; 86140; 96360; 99283; A9270-GY

== ENCOUNTER 2019-10-23 12:46 | Emergency (ER) | payer OTHER ==
[2019-10-23] MEDS ORDERED: Ketorolac *IM* INJ* 60 MG/2 ML VIAL IM ONE (13:43)
[2019-10-23] MEDS ORDERED: HYDROcodone/ACETAMIN 5-325 MG* 1 TAB PO ONE (13:43)
--- NOTE | 2019-10-23 15:21 | ED ---
Back Pain - HPI Summary HPI Summary: Pt. is a 49 y.o who presents to the ER for low back pain x several days. Pt. denies any injuries or falls. Pt. notes hx of back pain but today pain is different. Notes radicular pain into both legs. Notes chronic neuropathy to legs without change. Denies bowel or bladder incontinence or retention. Denies fever, urinary sxs, abd. pain, cp, sob. Has been taking tylenol and motrin without relief. Movement makes sxs worse. Nothing improves. pain. - History of Current Complaint Chief Complaint: EDBackInjuryPain Stated Complaint: BACK PAIN PER PT Time Seen by Provider: 10/23/19 13:32 Hx Obtained From: Patient Hx Last Menstrual Period: 2 weeks ago Pain Intensity: 10 - Allergies/Home Medications Allergies/Adverse Reactions: Allergies Allergy/AdvReac Type Severity Reaction Status Date / Time Adhesive Tape [Paper Tape] Allergy Rash Verified 10/23/19 13:03 amoxicillin [From Augmentin] Allergy Unknown Verified 10/23/19 13:03 Reaction Details clavulanic acid Allergy Unknown Verified 10/23/19 13:03 [From Augmentin] Reaction Details dapagliflozin [From Farxiga] Allergy See Comment Verified 10/23/19 13:03 clarithromycin [From Biaxin] AdvReac Severe GI Upset Verified 10/23/19 13:03 erythromycin base AdvReac GI Upset Verified 10/23/19 13:03 bee stings Allergy Unknown Flushing Uncoded 10/23/19 13:03 Home Medications: Home Medications Cetirizine* [ZyrTEC 10 MG TAB*] 10 mg PO DAILY 09/05/18 [History Confirmed 12/07] Dapagliflozin Propanediol [Farxiga] 5 mg PO DAILY 09/05/18 [History Confirmed ] Ergocalciferol (Vitamin D2) [Vitamin D2] 50,000 unit PO WEEKLY 09/05/18 [ History Confirmed 12/07/18] Gabapentin TAB(NF) [Neurontin 600 mg TAB(NF)] 600 mg PO TID 09/05/18 [History Confirmed 12/07/18] Meloxicam(NF) [Mobic(NF)] 15 mg PO DAILY WITH MEAL 09/05/18 [History Confirmed 12/07/18] Metformin ER (NF) 1,000 mg PO BID 09/05/18 [History Confirmed 12/07/18] Simvastatin TAB(NF) [Zocor(NF)] 20 mg PO BEDTIME 09/05/18 [History Confirmed 06/17] hydrOXYzine HCL TAB* [Atarax 25 MG TAB*] 25 mg PO BID PRN 09/05/18 [History Confirmed 12/07/18] lisinopriL [Lisinopril 2.5 MG-] 2.5 mg PO DAILY 09/05/18 [History Confirmed 06/17] HYDROcodone/ACETAMIN 5-325 MG* [[place] 5-325 TAB*] 1 tab PO Q6H PRN #12 tab MDD 4 09/30/18 [Rx Confirmed 12/07/18] Omeprazole 40 mg PO DAILY #30 cap 09/30/18 [Rx Confirmed 12/07/18] Sitagliptin Phosphate [Januvia] 50 mg PO DAILY 09/30/18 [History Confirmed 12/07] Diazepam TAB(*) [Valium TAB(*)] 5 mg PO TID PRN 2 Days #6 tab MDD 3 tabs [Rx] Lidocaine 1 each TP Q12H 2 Days #4 adh..patch 12/07/18 [Rx] Hydrocodone/Acetaminophen [Hydrocodone-Acetamin 5-325 mg] 1 each PO Q6H #8 tablet MDD 4 10/23/19 [Rx] PMH/Surg Hx/FS Hx/Imm Hx Previously Healthy: Yes Endocrine/Hematology History: Reports: Hx Diabetes Denies: Hx Systemic Lupus Erythematosus, Hx Thyroid Disease Cardiovascular History: Reports: Hx Hypercholesterolemia, Hx Hypertension Denies: Hx Congestive Heart Failure, Hx Pacemaker/ICD Respiratory History: Reports: Hx Chronic Obstructive Pulmonary Disease (COPD), Hx Sleep Apnea - CPAP GI History: Reports: Hx Diverticulosis Denies: Hx Gastroesophageal Reflux Disease History: Reports: Hx Kidney Stones, Hx Renal Disease - RENAL CALCULI Denies: Hx Dialysis Musculoskeletal History: Reports: Hx Arthritis - KNEES,HIPS,BACK, Hx Back Problems - chronic low back pain, Other Musculoskeletal History - bilateral knee pain, obesity, LUMBAR DDD Denies: Hx Rheumatoid Arthritis, Hx Osteoporosis Sensory History: Reports: Hx Contacts or Glasses - GLASSES, Hx Deafness - Right ear deaf Denies: Hx Hearing Aid, Other Sensory Impairments Opthamlomology History: Reports: Hx Contacts or Glasses - GLASSES Denies: Other Sensory Impairments Neurological History: Reports: Hx Migraine - 1/MONTH Denies: Hx Dementia, Hx Seizures Psychiatric History: Reports: Hx Anxiety - prn Xanax, Hx Depression - Celexa, Other Psychiatric Issues/Disorders - 2 month period of homeless Denies: Hx Substance Abuse - Cancer History Hx Chemotherapy: No - Surgical History Surgery Procedure, Year, and Place: tubal ligation 1998. L BREAST I+D MASTITIS (MRSA). TONSILLECTOMY A CHILD. CHOLECYSTECTOMY Hx Anesthesia Reactions: No Infectious Disease History: No Infectious Disease History: Reports: Hx of Known/Suspected MRSA Denies: Hx Clostridium Difficile, Hx Hepatitis, Hx Human Immunodeficiency Virus (HIV), Hx Shingles, Hx Tuberculosis, Hx Known/Suspected VRE, Hx Known/ Suspected VRSA, History Other Infectious Disease, Traveled Outside the in Last 30 Days - Family History Known Family History: Positive: Cardiac Disease, Diabetes, Non-Contributory - Social History Occupation: Unemployed Lives: With Family Alcohol Use: None Substance Use Type: Reports: Marijuana Substance Use Comment - Amount & Last Used: uses a few times per year per patient Smoking Status (MU): Heavy Every Day Tobacco Smoker Type: Cigarettes Amount Used/How Often: >1/2 ppd Length of Time of Smoking/Using Tobacco: 30 YRS Have You Smoked in the Last Year: Yes Review of Systems Constitutional: Negative Negative: Fever, Chills Cardiovascular: Negative Negative: Chest Pain Respiratory: Negative Negative: Cough Gastrointestinal: Negative Negative: Abdominal Pain, Vomiting, Diarrhea, Nausea Genitourinary: Negative Negative: dysuria Positive: Other - Low back pain Skin: Negative Neurological/Mental Status: Negative Positive: Paresthesia - chronic neuropathy in bilateral LEs. All Other Systems Reviewed And Are Negative: Yes Physical Exam Triage Information Reviewed: Yes Vital Signs On Initial Exam: Initial Vitals Temp Pulse Resp BP Pulse Ox 98.1 F 70 19 174/82 97 10/23/19 13:00 10/23/19 13:00 10/23/19 13:10/23/19 13:10/23/19 13:00 Vital Signs Reviewed: Yes Appearance: Positive: Pain Distress - Pt. sitting on side of bed, appears in pain but nontoxic. SO present. Skin: Positive: Warm, Dry Head/Face: Positive: Normal Head/Face Inspection Eyes: Positive: Normal, EOMI Neck: Positive: Supple Respiratory/Lung Sounds: Positive: Clear to Auscultation, Breath Sounds Present Cardiovascular: Positive: Normal, RRR Musculoskeletal: Positive: Normal, Strength/ROM Intact, Other - Diffuse midline tenderness to lower T spine and L spine. 5/5 strength in bilateral UEs and LEs. Neurological: Positive: Normal, CN Intact II-III Psychiatric: Positive: Affect/Mood Appropriate Procedures - Sedation Patient Received Moderate/Deep Sedation with Procedure: No Diagnostics - Vital Signs Vital Signs Temp Pulse Resp BP Pulse Ox 10/23/19 13:00 98.1 F 70 19 174/82 97 - Laboratory Lab Statement: Any lab studies that have been ordered have been reviewed, and results considered in the medical decision making process. Back Pain Course/Dx - Course Course Of Treatment: Pt. with low back pain. Afebrile. NO neuro deficits or signs of cauda equina. Pt. feeling better after pain medications. Xray shows worsening degenerative changes. WIll rx a few tabs of lortab for pain. To continue warm compress and avoid heavy lifting. WIll f.u with pcp. Given return precautions. - Diagnoses Differential Diagnosis/HQI/PQRI: Positive: Fracture, Herniated Disc, Neoplasm, Strain, Sprain Provider Diagnoses: Acute low back pain Discharge ED - Sign-Out/Discharge Documenting (check all that apply): Patient Departure - Discharge Plan Condition: Improved Disposition: HOME Prescriptions: Hydrocodone/Acetaminophen [Hydrocodone-Acetamin 5-325 mg] 1 each PO Q6H #8 tablet MDD 4 Patient Education Materials: Acute Low Back Pain (ED) Referrals: [facility] [Outside] Additional Instructions: Call your PCP today for a close follow up appointment Pain medication as directed Avoid heavy lifting Apply warm compresses Return to ER if symptoms change or worsen - Billing Disposition and Condition Condition: IMPROVED Disposition: Home - Attestation Statements Provider Attestation: I was available for consultation for this patient. I did not evaluate the patient or participate in any medical decision making or disposition decisions unless I am specifically named in the chart as having consulted on the patient. If I have consulted on the patient, please see my own ED note on the patient encounter. Randall Doan MD
[2019-10-23 15:38] VITALS: BP 163/74
== END 2019-10-23 15:36 | disposition home or self-care (01) ==
LOC: ED 12:46
DX: M54.5 Low back pain (principal); E11.9 Type 2 diabetes mellitus without complications; E78.00 Pure hypercholesterolemia, unspecified; I10 Essential (primary) hypertension; J44.9 Chronic obstructive pulmonary disease, unspecified; F41.9 Anxiety disorder, unspecified; F32.9 Major depressive disorder, single episode, unspecified; F17.210 Nicotine dependence, cigarettes, uncomplicated; Z98.51 Tubal ligation status; Z90.49 Acquired absence of other specified parts of digestive tract; Z87.442 Personal history of urinary calculi; Z79.84 Long term (current) use of oral hypoglycemic drugs; Z79.899 Other long term (current) drug therapy; Z88.0 Allergy status to penicillin; Z88.1 Allergy status to other antibiotic agents; Z88.8 Allergy status to other drugs, medicaments and biological substances
CPT/HCPCS: 72070; 72110; 96372; 99282; J1885

== ENCOUNTER 2019-11-20 12:11 | Inpatient (IN) | payer OTHER ==
[2019-11-20] MEDS ORDERED: Nitroglycerin TAB 0.4 MG* 0.4 MG TAB SL ONE (12:27)
--- NOTE | 2019-11-20 12:27 | ED ---
HPI Chest Pain - HPI Summary HPI Summary: This patient is a 49 year old female presenting to [facility] with a chief complaint of chest pain since she woke up 6 hours ago. She states the pain is radiating up the her shoulder. She does not know if it is causing numbness because her arms are always numb due neuropathy. She states when it first happened she felt SOB. She states she gets chest pains sometimes but it typically goes away. She states she has had a nuclear stress test about three years ago and there were not remarkable results. She states she has had catheterization. She reports a Hx of diabetes, HLD, sleep apnea. She reports nausea. Patient denies any fever, chills, erythema of eyes, sore throat, cough, abdominal pain, vomiting, dysuria , hematuria, myalgia, edema, rash, or dizziness. Her pain initially rated 8/10 in severity. - History of Current Complaint Time Seen by Provider: 11/20/19 12:19 Hx Obtained From: Patient Hx Last Menstrual Period: 2 weeks ago Onset/Duration: Started Hours Ago Pain Intensity: 8 Pain Scale Used: 0-10 Numeric Chest Pain Location: Mid Sternal - Additional Pertinent History Primary Care Physician: KILEY - Allergy/Home Medications Allergies/Adverse Reactions: Allergies Allergy/AdvReac Type Severity Reaction Status Date / Time Adhesive Tape [Paper Tape] Allergy Rash Verified 10/23/19 13:03 amoxicillin [From Augmentin] Allergy Unknown Verified 10/23/19 13:03 Reaction Details clavulanic acid Allergy Unknown Verified 10/23/19 13:03 [From Augmentin] Reaction Details dapagliflozin [From Farxiga] Allergy See Comment Verified 10/23/19 13:03 clarithromycin [From Biaxin] AdvReac Severe GI Upset Verified 10/23/19 13:03 erythromycin base AdvReac GI Upset Verified 10/23/19 13:03 bee stings Allergy Unknown Flushing Uncoded 10/23/19 13:03 Home Medications: Home Medications Metformin ER (NF) 1,000 mg PO DAILY 09/05/18 [History Confirmed 11/20/19] Cholecalciferol TAB* [Vitamin D TAB*] 2,000 units PO DAILY 11/20/19 [History Confirmed 11/20/19] DULoxetine CAP* [Cymbalta CAP*] 30 mg PO DAILY 11/20/19 [History Confirmed ] Insulin Glargine,Hum.rec.anlog [Basaglar Kwikpen 100 inuts/ml 3 ml x 5 Pens] 12 units SUBCUT BEDTIME 11/20/19 [History Confirmed 11/20/19] celeCOXIB CAP* [CeleBREX CAP*] 200 mg PO DAILY 11/20/19 [History Confirmed 11/19] tiZANidine TAB* [Zanaflex TAB*] 4 mg PO TID 11/20/19 [History Confirmed 11/20/19 ] PMH/Surg Hx/FS Hx/Imm Hx Endocrine/Hematology History: Reports: Hx Diabetes Denies: Hx Systemic Lupus Erythematosus, Hx Thyroid Disease Cardiovascular History: Reports: Hx Hypercholesterolemia, Hx Hypertension Denies: Hx Congestive Heart Failure, Hx Pacemaker/ICD Respiratory History: Reports: Hx Chronic Obstructive Pulmonary Disease (COPD), Hx Sleep Apnea - CPAP GI History: Reports: Hx Diverticulosis Denies: Hx Gastroesophageal Reflux Disease History: Reports: Hx Kidney Stones, Hx Renal Disease - RENAL CALCULI Denies: Hx Dialysis Musculoskeletal History: Reports: Hx Arthritis - KNEES,HIPS,BACK, Hx Back Problems - chronic low back pain, Other Musculoskeletal History - bilateral knee pain, obesity, LUMBAR DDD Denies: Hx Rheumatoid Arthritis, Hx Osteoporosis Sensory History: Reports: Hx Contacts or Glasses - GLASSES, Hx Deafness - Right ear deaf Denies: Hx Hearing Aid, Other Sensory Impairments Opthamlomology History: Reports: Hx Contacts or Glasses - GLASSES Denies: Other Sensory Impairments Neurological History: Reports: Hx Migraine - 1/MONTH Denies: Hx Dementia, Hx Seizures Psychiatric History: Reports: Hx Anxiety - prn Xanax, Hx Depression - Celexa, Other Psychiatric Issues/Disorders - 2 month period of homeless Denies: Hx Substance Abuse - Cancer History Hx Chemotherapy: No - Surgical History Surgery Procedure, Year, and Place: tubal ligation 1998. L BREAST I+D MASTITIS (MRSA). TONSILLECTOMY A CHILD. CHOLECYSTECTOMY Hx Anesthesia Reactions: No Infectious Disease History: Reports: Hx of Known/Suspected MRSA Denies: Hx Clostridium Difficile, Hx Hepatitis, Hx Human Immunodeficiency Virus (HIV), Hx Shingles, Hx Tuberculosis, Hx Known/Suspected VRE, Hx Known/ Suspected VRSA, History Other Infectious Disease - Family History Known Family History: Positive: Cardiac Disease, Diabetes, Non-Contributory - Social History Alcohol Use: None Substance Use Type: Reports: Marijuana Substance Use Comment - Amount & Last Used: uses a few times per year per patient Smoking Status (MU): Heavy Every Day Tobacco Smoker Type: Cigarettes Amount Used/How Often: >1/2 ppd Length of Time of Smoking/Using Tobacco: 30 YRS Have You Smoked in the Last Year: Yes Review of Systems Negative: Fever, Chills Negative: Erythema Negative: Sore Throat Positive: Chest Pain Positive: Shortness Of Breath. Negative: Cough Positive: Nausea. Negative: Abdominal Pain, Vomiting Negative: dysuria, hematuria Negative: Myalgia, Edema Negative: Rash Neurological/Mental Status: Other - Neg:L Dizziness All Other Systems Reviewed And Are Negative: Yes Physical Exam - Summary Physical Exam Summary: Constitutional: Well-developed, Well-nourished, Alert. (-) Distressed Skin: Warm, Dry HENT: Normocephalic; Atraumatic Eyes: Conjunctiva normal Neck: Musculoskeletal ROM normal neck. (-) JVD, (-) Stridor, (-) Tracheal deviation Cardio: Rhythm regular, rate normal, Heart sounds normal; Intact distal pulses; Radial pulses are 2+ and symmetric. (-) Murmur Pulmonary/Chest wall: Effort normal. (-) Respiratory distress, (-) Wheezes, (-) Rales Abd: Soft, (-) tenderness, (-) Distension, (-) Guarding, (-) Rebound Musculoskeletal: (-) Edema Lymph: (-) Cervical adenopathy Neuro: Alert, Oriented x3 Psych: Mood and affect Normal Triage Information Reviewed: Yes Vital Signs Reviewed: Yes Procedures - Sedation Patient Received Moderate/Deep Sedation with Procedure: No Diagnostics - Laboratory Result Diagrams: 11/20/19 12:30 11/20/19 12:30 Lab Statement: Any lab studies that have been ordered have been reviewed, and results considered in the medical decision making process. - Radiology CXR Radiology Interpretation Completed By: Radiologist Summary of Radiographic Findings: Pulmonary vascular congestion. ED physician has reviewed this report. - EKG 1227 Cardiac Rate: NL - 62 BPM EKG Rhythm: Sinus Rhythm Summary of EKG Findings: An EKG at 1227 reveals sinus or ectopic atrial rhythm at rate of [address] Fallon has reviewed and interpreted this EKG. Re-Evaluation - Re-Evaluation First Eval Re-Evaluation Time: 15:50 Change: Improved Comment: Patient is chest pain free after nitro. Chest Pain Course/Dx - Course Course Of Treatment: This patient is a 49 year old female presenting to [facility] with a chief complaint of chest pain since she woke up 6 hours ago. She states the pain is radiating up the her shoulder. She does not know if it is causing numbness because her arms are always numb due neuropathy. She states when it first happened she felt SOB. She states she gets chest pains sometimes but it typically goes away. She states she has had a nuclear stress test about three days ago and there were not remarkable results. She states she has had catheterization. Physical exam without any abnormalities. Patient received NTG. Blood work reveals RBCs 5.52, RDW 18, sodium 132, carbon dioxide 20, hyperglycemia with glucose 243, alkaline phosphatase 107. Negative first troponin. EKG at 1227 reveals sinus or ectopic atrial rhythm at rate of 62 BPM, no STEMI. CXR shows pulmonary vascular congestion. Second troponin 0.6 initially. Patient without any pain after nitro. Heart score is 4 without considering the second troponin which is being verified now. Heart score is 6 if considering repeat troponin. Patient still pain-free. Patient received another NTG and Tylenol. I discussed the patients case with Dr. Gutierrez from the hospitalist services, deferring anticoagulants to her. Dr. Gutierrez has agreed to consult with cardiology for the patient. All results discussed with the patient. Patient understands and agrees with plan. - Diagnoses Provider Diagnoses: NSTEMI (non-ST elevated myocardial infarction) - Provider Notifications Discussed Care Of Patient With: Daria Gutierrez - hospitalist Instructed by Provider To: Other - I discussed the patients case with Dr. Gutierrez, deferring anticoagulants to her. Dr. Gutierrez has agreed to consult with cardiology for the patient. - Critical Care Time Critical Care Time: 30-74 min - 60 minutes Discharge ED - Sign-Out/Discharge Documenting (check all that apply): Patient Departure - Patient accepted for admission by Dr. Gutierrez. - Discharge Plan Condition: Stable Disposition: ADMITTED TO [facility] Referrals: No Primary Care Phys,NOPCP [Primary Care Provider] - - Attestation Statements Document Initiated by Scribe: Yes Documenting Scribe: Denise Isaac Provider For Whom Scribe is Documenting (Include Credential): Jean-Pierre Fallon MD Scribe Attestation: Sam Miguel, Denise Jones, scribed for Jean-Pierre Fallon MD on 11/20/19 at 1701. Status of Scribe Document: Ready
[2019-11-20 12:48] LABS: ABS Basophils 0.1 10^3/ul (0-0.2); ABS Eosinophils 0.2 10^3/ul (0-0.6); ABS Lymphocytes 2.3 10^3/ul (1.0-4.8); ABS Monocytes 0.7 10^3/ul (0-0.8); ABS Neutrophils 7.2 10^3/ul (1.5-7.7); Eosinophil % 1.9 %; Hematocrit 43 % (35-47); Hemoglobin 14.2 g/dL (12.0-16.0); Lymphocyte % 22.1 %; Mean Corpuscular HGB Conc 33 g/dL (31-36); Mean Corpuscular Hemoglobin 26 pg (27-31); Mean Corpuscular Volume 78 fL (80-97); Mean Platelet Volume 8.4 fL (7.4-10.4); Platelet Count 204 10^3/uL (150-450); Red Blood Count 5.52 10^6 /uL (3.70-4.87); Red Cell Distribution Width 18 % (10-15); White Blood Count 10.5 10^3/uL (3.5-10.8)
[2019-11-20 12:59] LABS: Albumin 4.1 g/dL (3.2-5.2); Albumin/Globulin Ratio 1.1 (1-3); BUN/Creatinine Ratio 15.6 (8-20); EGFR African American 120.4 (>60); EGFR Non-African American 99.5 (>60); Globulin 3.6 g/dL (2-4); Total Bilirubin 0.3 mg/dL (0.2-1.0); Total Protein 7.7 g/dL (6.4-8.9)
[2019-11-20 13:42] LABS: Potassium 3.9 mmol/L (3.5-5.0)
[2019-11-20] MEDS ORDERED: Acetaminophen TAB* 325 MG PO ONE (15:19)
[2019-11-20] MEDS ORDERED: Nitroglycerin TAB 0.4 MG* 0.4 MG TAB SL PRN (16:58)
[2019-11-20] MEDS ORDERED: Heparin DRIP 25,000 UNITS(*) 25,000 UNITS/500 ML BAG IV SCH (17:00)
[2019-11-20] MEDS ORDERED: Ticagrelor* 90 MG TAB PO ONE (17:06)
[2019-11-20] MEDS ORDERED: Lisinopril TAB* 5 MG PO ONE (17:43)
[2019-11-20] MEDS ORDERED: Dextrose 50% Syringe 50 ML* 25 GM/50 ML SYRINGE IV PUSH PRN (17:46)
[2019-11-20] MEDS ORDERED: Ondansetron INJ* 2 MG/ML VIAL IV ONE (18:05)
[2019-11-20] MEDS ORDERED: tiZANidine TAB* 2 MG PO PRN (18:10)
--- NOTE | 2019-11-20 18:37 | HP ---
CC: [place], [place] * HISTORY AND PHYSICAL: DATE OF ADMISSION: 11/20/19 PRIMARY CARE PROVIDER: Provider at [facility] in [place]. CHIEF COMPLAINT: Chest pain. HISTORY OF PRESENT ILLNESS: Ms. Pinto is a 49-year-old female who has a history of type 2 diabetes, morbid obesity, ALANNA, and a family history of CAD, in addition to being an active smoker, who presents to the emergency room with complaints of chest pain. The patient states that for years she has had off and on episodes of chest pain; however, over the last couple weeks these have increased in frequency. She states typically the pain will last 5 to 10 minutes and then go away on its own. This morning, she woke up at approximately quarter to 7 and by 7:30 was in the shower. While she was in the shower, she developed centrally located chest pain that she described as a pressure and tight sensation in her chest. She states that it did radiate slightly up into her neck, which also felt tight. She had associated nausea. 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 The patient ultimately presented to the emergency room for evaluation. She received a second nitroglycerin in the emergency room and with that the chest pain went away completely. At this time, she is chest pain-free. PAST MEDICAL HISTORY: 1. Type 2 diabetes. 2. ALANNA, on BiPAP. 3. Depression and anxiety. 4. OA. PAST SURGICAL HISTORY: 1. Left breast surgery for infection. 2. Cholecystectomy. 3. Tubal. 4. Tonsillectomy. ALLERGIES: AUGMENTIN, BIAXIN, BEES, PAPER TAPE. FAMILY HISTORY: Mom is at the age of 67, she had diabetes and hyperlipidemia. Dad at the age of 57, he had an ND. The patient has 9 siblings, one sister with CVA at the age of 66. SOCIAL HISTORY: The patient smokes 1 pack per day for the last 35 years. She does not drink alcohol. She smokes marijuana on occasion. She works as a booth cashier. She is . She has 2 children. Her , Silverio, is her healthcare proxy. REVIEW OF SYSTEMS: A complete 11-system review of systems is obtained. Pertinent positives and negatives are as per HPI and otherwise negative. PHYSICAL EXAMINATION GENERAL: The patient is a well-developed, morbidly obese, middle-aged female seen sitting up in the stretcher, in no acute distress. VITAL SIGNS: Blood pressure 177/77, pulse 64, respirations 19, temp 98.2, O2 sat 97% on room air. HEENT: Pupils are equal. Extraocular muscles are intact. Oropharynx is clear. The patient wears dentures. NECK: There is no submandibular, cervical, or supraclavicular adenopathy. Thyroid exam is difficult given her large neck. PULMONARY: Lungs are clear to auscultation bilaterally. CARDIAC: Normal S1, S2. Regular rate and rhythm. I do not appreciate any murmurs. She has no lower extremity edema. ABDOMEN: Bowel sounds present. Abdomen is soft, nontender, nondistended. MUSCULOSKELETAL: There is no cyanosis or clubbing of the digits. There is full active range of motion of all 4 extremities. NEURO: Cranial nerves II through XII are grossly intact. Sensation is intact to light touch throughout. Strength is 5/5 and symmetric in both upper and lower extremities bilaterally. PSYCH: The patient is alert. She is oriented x3. Affect appears appropriate. SKIN: Warm and dry. There are no rashes. DIAGNOSTIC STUDIES/LAB DATA: WBC 10.5, hemoglobin 14.2, hematocrit 43, platelets 204. Sodium 132, potassium 3.9, chloride 102, CO2 of 20, BUN 10, creatinine 0.64, glucose 243, lactic acid 1.7, calcium 9.0. Bilirubin 0.3, AST 13, ALT 16, alk phos 107. Troponin 0, up to 0.6. BNP 26. Albumin 4.1. EKG reveals normal sinus rhythm without any acute ST-T wave abnormalities. Chest x-ray is being read as having pulmonary vascular congestion. ASSESSMENT AND PLAN: Ms. Pinto is a 49-year-old female with a history of type 2 diabetes, ongoing tobacco abuse, obstructive sleep apnea, and strong family history for early coronary artery disease, who presents to the emergency room with complaints of chest pain. 1. Non-ST elevation myocardial infarction. At this point, it appears that the patient is having non-ST elevation myocardial infarction as her troponin increased from 0 to 0.6. Followup troponin has been ordered for 1819 as has repeat EKG. The patient already received aspirin in the field. She will otherwise continue on aspirin 81 mg p.o. daily starting tomorrow, Lipitor 40 mg at bedtime, heparin drip, metoprolol tartrate 12.5 mg p.o. twice daily, and Brilinta 180 mg p.o. x1 now followed by 90 mg p.o. b.i.d. I have requested Cardiology consultation and spoke with Dr. Alaniz, who will pass on the consultation to Dr. Villa tomorrow. The patient has been instructed that if she develops any further chest pain she should immediately alert the nurses. P.r.n. nitroglycerin has been ordered. 2. Hypertension. The patient's blood pressures are quite elevated at this time. She is not on any antihypertensives at home. She is being started on low- dose metoprolol; however, I do not believe that this will have a great enough effect on her blood pressure to bring it down into range. I am going to add lisinopril 5 mg p.o. daily as well. 3. Type 2 diabetes. The patient is already on Lantus 12 units subcutaneous at bedtime. This will be continued and in addition I will add a lispro sliding scale. I am adding on a hemoglobin A1c to labs drawn in the emergency room to determine if her Lantus dose should be adjusted. 4. Obstructive sleep apnea. BiPAP has been ordered for the patient. 5. Depression. We will continue duloxetine 30 mg p.o. daily. 6. Osteoarthritis. I am going to hold the patient's Celebrex, but I will reorder her tizanidine. 7. DVT prophylaxis: According to the Adult Thrombosis Prophylaxis Risk Factor Assessment Guide, the patient has a total risk factor score of 2, making her moderate risk. She is going to be on a heparin drip and this will act as her DVT prophylaxis. 8. Code status is full. TIME SPENT: Sixty-five minutes was spent admitting this patient. [id number]/[facility] #: [id number] SCOTT
[2019-11-20 18:44] LABS: Troponin I 1.58 ng/mL (<0.03)
[2019-11-20] MEDS: Heparin VIAL(*) 5000 UNITS/ML VIAL (FIVE THOUSAND) IV PRN (19:42)
[2019-11-20] MEDS: Metoprolol Tartrate TAB* 25 MG PO SCH (20:28)
[2019-11-20] MEDS ORDERED: Atorvastatin* 40 MG TAB PO SCH (21:00)
[2019-11-20] MEDS ORDERED: tiZANidine TAB* 2 MG PO SCH (21:00)
[2019-11-20] MEDS ORDERED: Insulin GLARGINE(*) 1 UNITS UNIT SUBCUT SCH (21:00)
[2019-11-20] MEDS ORDERED: Nitro 2% OINT* (Nitroglycerin) 1 INCH/PAK PAK TOPICAL ONE (21:38)
--- NOTE | 2019-11-20 23:31 | PN ---
Hospitalist Progress Note Date of Service: 11/20/19 called to bedside for reports of LUQ pain radiating ot chest and nausea. EKG obtained unchagned. Nitro paste ordered. i went to eval patient after nitro paste placed by nursing staff patient noted to be sleep with cpap on and no acute distress at this point. Will continue to monitor going forward. next trop at midnight.
[2019-11-20] MEDS ORDERED: Insulin GLARGINE(*) 1 UNITS UNIT SUBCUT ONE (23:45)
[2019-11-20] MEDS ORDERED: Insulin LISPRO* 1 UNITS UNIT SUBCUT ONE (23:45)
[2019-11-21] MEDS ORDERED: Insulin GLARGINE(*) 1 UNITS UNIT SUBCUT ONE
[2019-11-21] MEDS ORDERED: Insulin LISPRO* 1 UNITS UNIT SUBCUT ONE
[2019-11-21] MEDS: Insulin LISPRO* 1 UNITS UNIT SUBCUT SCH ×3 (00:37→13:21)
[2019-11-21] MEDS ORDERED: LORazepam TAB(*) 0.5 MG PO ONE (00:42)
[2019-11-21 00:53] LABS: Troponin I 1.02 ng/mL (<0.03)
[2019-11-21] MEDS: Acetaminophen TAB* 325 MG PO PRN ×2 (00:59→08:53)
[2019-11-21] MEDS: Heparin VIAL(*) 5000 UNITS/ML VIAL (FIVE THOUSAND) IV PRN (02:20)
[2019-11-21 04:46] LABS: ABS Basophils 0.1 10^3/ul (0-0.2); ABS Eosinophils 0.3 10^3/ul (0-0.6); ABS Lymphocytes 2.9 10^3/ul (1.0-4.8); ABS Monocytes 0.6 10^3/ul (0-0.8); ABS Neutrophils 5.4 10^3/ul (1.5-7.7); Hematocrit 37 % (35-47); Hemoglobin 13.2 g/dL (12.0-16.0); Lymphocyte % 31.4 %; Mean Corpuscular HGB Conc 35 g/dL (31-36); Mean Corpuscular Hemoglobin 27 pg (27-31); Mean Corpuscular Volume 78 fL (80-97); Mean Platelet Volume 8.8 fL (7.4-10.4); Nucleated Red Blood Cells % 0.2; Platelet Count 204 10^3/uL (150-450); Red Blood Count 4.81 10^6 /uL (3.70-4.87); Red Cell Distribution Width 18 % (10-15); White Blood Count 9.3 10^3/uL (3.5-10.8)
[2019-11-21] MEDS ORDERED: Diazepam TAB(*) 5 MG PO PRN (08:13)
[2019-11-21] MEDS ORDERED: diPHENhydraMINE PO* 25 MG PO PRN (08:13)
[2019-11-21] MEDS ORDERED: NS 0.9% 1000 ML** 1,000 ML IV SCH (08:15)
[2019-11-21] MEDS: Metoprolol Tartrate TAB* 25 MG PO SCH (08:43)
[2019-11-21] MEDS ORDERED: Ticagrelor* 90 MG TAB PO SCH (09:00)
[2019-11-21] MEDS ORDERED: DULoxetine DR CAP* 30 MG CAP.DR PO SCH (09:00)
[2019-11-21] MEDS ORDERED: Lisinopril TAB* 5 MG PO SCH (09:00)
[2019-11-21] MEDS ORDERED: Aspirin 81 mg CHEW TAB* 81 MG TAB.CHEW PO SCH (09:00)
--- NOTE | 2019-11-21 09:26 | CONS ---
CC: [place], [place] CARDIOLOGY CONSULTATION: DATE OF CONSULT: 11/21/19 INDICATION FOR CONSULTATION: NSTEMI, chest pain, diabetes. HISTORY OF PRESENT ILLNESS: The patient is a 49-year-old female with a history of diabetes, obesity, sleep apnea, history of known mild coronary artery disease, who came to the hospital because of ches t pain. The patient states she was at work yesterday. She was moving groceries around the store and started having chest pain. It was in the center of her chest. It did not radiate anywhere. It fel t like a weight on her chest. She got short of breath with this. She tried to work about 15 or 20 m inutes with this discomfort and then realized it was not going away. In the end, the patient receive d a sublingual nitroglycerin which showed improvement in her symptoms; however, on arrival to the [facility], she was having the same discomfort, only less. Initial EKG showed no evidence of ST segment e levation or depression. Her initial troponin level was normal. Her second troponin was 0.6, third t roponin 1.58. PAST MEDICAL HISTORY: Significant for diabetes, obstructive sleep apnea, depression, arthritis. PAST SURGICAL HISTORY: Cholecystectomy, tubal ligation, tonsillectomy, breast surgery for infection in the past, cardiac catheterization in 2014 showed mild disease to her LAD and right coronary artery . OUTPATIENT MEDICATIONS: 1. Metformin 1000 mg daily. 2. Cymbalta 30 mg a day. 3. Zanaflex 4 mg 3 times a day as needed. 4. Celebrex 200 mg daily. 5. Insulin as directed. ALLERGIES: AMOXICILLIN and BIAXIN. FAMILY HISTORY: Mother at 67 of diabetes and hypertension. Father at 57 of a myocardial i nfarction. SOCIAL HISTORY: The patient smokes 1 pack of cigarettes a day. She denies alcohol use. She is noé ied. She has 2 children. REVIEW OF SYSTEMS: Negative for fevers or chills. Negative for changes in bowel or bladder habits. The patient did state that she had a 75-pound weight loss in the last 2 years, which was intentional . PHYSICAL EXAM: Height is 5 feet 5 inches, weight is 300 pounds, temperature 97, heart rate is 60, bl ood pressure 146/73, respiratory rate is 18, oxygen saturation 97% on room air. Sclerae anicteric. Oropharynx is pink without erythema. Carotids are 2+ without bruits. JVD is normal. Thyroid is norm al. Cardiac Exam: S1, S2 without any murmurs, rubs, or gallops. Lungs are clear to auscultation. Th ere is no dullness to percussion. Abdomen is obese, soft, nontender, nondistended with normoactive b owel sounds. Extremities: Show minimal edema. She has 2+ pulses throughout. The patient is awake, alert, and oriented. She moves all 4 extremities equally. DIAGNOSTIC STUDIES/LAB DATA: Chemistries within normal limits. BUN and creatinine are normal. AST and ALT are normal. BNP is normal at 26. Troponins as mentioned above. CBC within normal limits. EKG shows normal sinus rhythm with normal axis and intervals. IMPRESSION: This is a 49-year-old female with a history of mild coronary artery disease, diabetes, s leep apnea, who came to the hospital because of anginal-type symptoms. The patient ruled in for an n on-ST elevation myocardial infarction. The patient is currently pain free. The patient was started on aspirin, Brilinta, heparin, and statin therapy overnight. For now my recommendation is the patient undergo cardiac catheterization. The risks and benefits of this were described in detail. The patient is aware of what a cardiac catheterization is as she had one in 2015 and agrees to proceed. Further recommendations pending results of her catheterization. [id number]/[facility] #: [id number]
[2019-11-21] MEDS ORDERED: Perflutren Lipid Microsphere* 3 ML VIAL ONE (09:34)
[2019-11-21] MEDS ORDERED: Lidocaine 1% INJ* 10 MG/ML 30 ML SDV ONE (10:22)
[2019-11-21] MEDS ORDERED: Heparin 2 UNITS/ML IVPREMIX* 2,000 ML IV ONE (10:22)
[2019-11-21] MEDS ORDERED: Iohexol 350 (CONTRAST) 200 ML MDV IV ONE (10:22)
--- NOTE | 2019-11-21 10:23 | ECHO ---
*[facility]* [place] [address] Fax #: [phone] Transthoracic Echocardiogram Patient: Parth Pinto : 1970 Study Date: 11/21/2019 Age: 49 Gender: F HR: 61 bpm Height: 65 in /165.1 cm BSA: 2.35 m^2 Weight: 299.4 lb /136.1 kg BMI: 49.9 kg/m^2 *Ball Maker: * Carlota Antunez [facility] *Referring Physician: * Shreyas Villa MD *Reading Physician: * Shreyas Villa MD Indications: Chest Pain, unspecified. History: Chest pain. Pericardial disease. Risk factors: Current tobacco use. Diabetes mellitus. Obese. Conclusions Summary: - Left ventricle: Systolic function is normal. The estimated ejection fraction is 55-60%. Wall motion is normal; there are no regional wall motion abnormalities. - Right ventricle: Systolic function is normal. - Mitral valve: There is no significant regurgitation. - Aortic valve: There is no evidence of stenosis. - Pulmonary arteries: Systolic pressure can not be accurately estimated. - Compared to study of 11/01/14, there is no change. Study data: Transthoracic echocardiogram. Procedure: Transthoracic echocardiography was performed. Image quality was fair. Intravenous Definity , 2 mlswas administered. Complete 2D, spectral Doppler, and color flow Doppler. Location: Bedside. Patient status: Inpatient. Patient room number: 442 02. Rhythm: Normal sinus rhythm. Findings Left ventricle: The cavity size is normal. Wall thickness is moderately increased. Systolic function is normal. The estimated ejection fraction is 55-60%. Wall motion is normal; there are no regional wall motion abnormalities. There is no consistent Doppler evidence of clinically significant diastolic dysfunction. Right ventricle: The cavity size is normal. Systolic function is normal. Left atrium: The atrium is at the upper limits of normal in size. Right atrium: The atrium is normal in size. Mitral valve: The leaflets are normal thickness. There is no evidence of stenosis. There is no significant regurgitation. Aortic valve: The valve is trileaflet. The leaflets are mildly thickened. There is no evidence of stenosis. There is no significant regurgitation. Tricuspid valve: The leaflets are normal thickness. There is no evidence of stenosis. There is no significant regurgitation. Pulmonic valve: The leaflets are normal thickness. There is no evidence of stenosis. There is no significant regurgitation. Aorta: The aortic root appears normal. The aortic arch appears normal. Pericardium: There is no significant pericardial effusion. Pulmonary arteries: Systolic pressure can not be accurately estimated. Systemic veins: Inferior vena cava: The vessel is dilated. There is (>= 50%) respiratory change in the IVC dimension. Measurements Left ventricle Value Ref Aortic valve continued Value Ref QUANG, LAX 4.7 cm 3.8 - 5.2 Mean grad, S 7.0 mm Hg --------- ESD, LAX 3.1 cm 2.2 - 3.5 Peak grad, S 12.0 mm Hg --------- FS, LAX 34 % 27 - 45 PW, ED, LAX (H) 1.5 cm 0.6 - 0.9 Mitral valve Value Ref E', lat angelina, TDI (L) 8.7 cm/sec >=10.0 Peak E 0.92 m/sec - -------- E/e', lat angelina, 11 Peak A 0.72 m/sec ---- ----- TDI Decel time 293 ms --------- E', med angelina, TDI 8.7 cm/sec >=7.0 Peak grad, D 3.4 mm Hg - -------- E/e', med angelina, 11 Peak E/A ratio 1.3 ---- ----- TDI E', avg, TDI 8.7 cm/sec Pulmonic valve Value Ref E/e', avg, TDI 11 <=14 Peak v, S 0.97 m/sec - -------- Peak grad, S 4.0 mm Hg --------- LVOT Value Ref Peak tanika, S 1 m/sec Aortic root Value Ref Mean grad, S 2 mm Hg Root diam 2.8 cm <4.4 Root max (L) 1.2 cm/m^2 1.4 - 2.2 Ventricular septum Value Ref diam/bsa, ED IVS, ED (H) 1.6 cm 0.6 - 0.9 Ascending aorta Value Ref Right ventricle Value Ref AAo AP diam, S 2.9 cm --------- QUANG, LAX 3.3 cm AAo AP 1.2 cm/m^2 --------- QUANG minor ax, A4C 2.7 cm 1.9 - 3.5 diam/bsa, S mid Aortic arch Value Ref Left atrium Value Ref Arch diam 2.9 cm --------- AP dim, ES (H) 5.00 cm 2.70 - Arch diam/bsa 1.2 cm/m^2 --------- 3.80 ML dim, A4C 5.2 cm Decending aorta Value Ref SI dim, A4C 6.4 cm Karma peak tanika 1.23 m/sec --------- Vol/bsa, ES, A/L 33 ml/m^2 16 - 34 Inferior vena cava Value Ref Right atrium Value Ref Diam 2.3 cm --------- SI dim, ES 4.8 cm 3.4 - 5.3 ML dim, ES, A4C 3.1 cm 2.6 - 4.4 Pulmonary veins Value Ref Estimated RAP 8 mm Hg Peak v, S 0.79 m/sec --------- Peak v, D 0.57 m/sec --------- Aortic valve Value Ref Peak S/D ratio 1.4 --------- Angelina diam, ED 2.0 cm A rev duration 124 ms --------- Peak v, S 1.71 m/sec VTI, S 36.6 cm Legend: (L) and (H) edmar values outside specified reference range. Prepared and electronically signed by Shreyas Villa MD 11/21/2019 10:23
[2019-11-21] MEDS ORDERED: diPHENhydraMINE PO* 25 MG ONE (10:26)
[2019-11-21] MEDS ORDERED: Diazepam TAB(*) 5 MG ONE (10:26)
[2019-11-21] MEDS ORDERED: fentaNYL* 50 MCG/ML 2 ML VIAL (100 MCG VIAL) ONE (10:40)
[2019-11-21] MEDS ORDERED: nitroGLYCERIN DRIP* 25,000 MCG/250 ML BTL ONE (10:40)
[2019-11-21] MEDS ORDERED: Heparin(*) 1000 UNIT/ML 10 ML VIAL CATH LAB IV ONE (10:40)
[2019-11-21] MEDS ORDERED: Midazolam* 1 MG/ML 5 ML VIAL (5 MG) ONE (10:40)
[2019-11-21] MEDS ORDERED: VERAPAMIL 2.5 MG/ML 2 ML VIAL ** 5 mg/2 ml ONE (10:40)
--- NOTE | 2019-11-21 12:00 | CATH ---
"*[facility]* [place] [address] Main: [phone] [email or web address] Cardiac Catheterization Patient: Parth Pinto : 1970 Study Date: 11/21/2019 Age: 49 Gender: F HR: Height: 65 in /165.1 cm BSA: 2.58 m^2 Weight: 300.1 lb /136.4 kg BMI: 50 kg/m^2 Educational [employer] Curator: Shreyas Villa MD Ordering Physician: Shreyas Villa MD Referring Physician: Shreyas Villa MD, Allen Corbett, --- - Left coronary angiography. - Right coronary angiography. - Left heart catheterization. Summary: Normal coronary arteries Recommendations: Plavix 75 mg a day for 6 months Statin daily, Stop Smoking History: Risk factors: Diabetes mellitus; on therapy with oral hypoglycemics. Dyslipidemia. Family history is significant for coronary artery disease. Labs, prior tests, procedures, and surgery: Blood tests: Troponin I (pre-procedure) of 1.02 ng/ml. Serum potassium (K) of 3.9 mEq/l. Serum sodium (Na) of 132 mEq/l. Serum creatinine (current admission) of 0.64 mg/dl. Blood urea nitrogen of 10 mg/dl. Glucose of 243 mg/dl. Platelet count of 204 th/ul. White blood cell count (WBC) of 0.01 th/ul. Red blood cell count (RBC) of 4810 th/ul. Hematocrit of 37 %. Hemoglobin (pre-procedure) of 13.2 g/dl. Study data: Study status: Cardiac cath: urgent. Location: Catheterization laboratory. Consent: The risks, benefits, and alternatives to the procedure were explained to the patient and/or their healthcare plastic products sales representative and written informed consent was obtained. All available pre-procedure labs were reviewed. Height: 165.1 cm. 65 in. Weight: 136.4 kg. 300.1 lb. Body surface area: 2.58 m^2. Body mass index: 50 kg/m^2. Procedure: 1. Initial setup. The patient was brought to the laboratory. Surface ECG leads, blood pressure measurements, and pulse oximetric signals were monitored. A baseline seven lead ECG was recorded. A time out was observed per protocol. 2. Skin preparation. The planned puncture sites were prepped and draped in the usual sterile manner. 3. Local anesthesia. 1% lidocaine was administered. 4. Sedation. was administered. 5. Local anesthesia. 1% lidocaine (2 ml) was administered. 6. Right radial artery access. A 6F [place]ath Slender sheath was advanced into the vessel. 7. Selective left coronary angiography. A 5F FL 3.5 Diagnostic Impulse catheter was advanced into the left coronary vessel ostium under fluoroscopic guidance. Contrast was injected. Images were obtained in multiple projections. 8. Selective right coronary angiography. A 5F AR 1 Impulse catheter was advanced into the right coronary vessel ostium under fluoroscopic guidance. Contrast was injected. Images were obtained in multiple projections. 9. Right radial artery hemostasis. Vessel closure was achieved with a Long Vasc Band device. 10. Left heart catheterization. A catheter was advanced across the aortic valve to the left ventricle under fluoroscopic guidance. Study completion: Minimal estimated blood loss. All catheters inserted during the procedure were removed. There were no apparent complications. Administered medications: BRILINTA (Ticagrelor), 90mg, PO. Aspirin, 81mg, PO. Heparin, infusion, at a rate of 1,350units/hr, IV was discontinued. VERSED (Midazolam), 2mg, IV. Fentanyl, 25mcg, IV. (Radial) Nitroglycerin, 300mcg, intra-arterially. (Radial) Verapamil, 3mg, intra-arterially. NaCl 0.9% , infusion , at a rate of 100 ml/hr. Contrast: Omnipaque 350 70 ml (total dose). Omnipaque 350 130 ml (wasted). Radiation: Fluoroscopy dose: 189.8 cGy. Discharge: The patient tolerated the procedure well and was discharged from the lab in stable condition. Findings Coronary arteries: The coronary circulation is right dominant. Left main: Normal, 0% stenosis. LAD: Normal, 0% stenosis. Left circumflex: Normal, 0% stenosis. Right coronary: Normal, 0% stenosis. Hemodynamics: + + + |Stage description |Condition 1 - | + + + |LV pressure s/d, ed |136/13, 15, dP/ob=0210 mm Hg/s| + + + |Arterial pressure s/d (m)|125/73 (97) | + + + Prepared and electronically signed by Shreyas Villa MD 11/21/2019 11:59"
[2019-11-21 16:15] LABS: Cholesterol 199 mg/dL
[2019-11-21 16:49] VITALS: BP 158/73
--- NOTE | 2019-11-21 18:22 | DS ---
CC: [facility]; Dr. Shreyas Villa, Cardiology* DISCHARGE SUMMARY: DATE OF ADMISSION: 11/20/19 DATE OF DISCHARGE: 11/21/19 PRIMARY CARE PHYSICIAN: [facility] in [place]. PRIMARY DIAGNOSIS: [id number] myocardial infarction. SECONDARY DIAGNOSES: 1. Obesity. 2. Obstructive sleep apnea, on CPAP. 3. Diabetes mellitus 2, on insulin, not controlled. CONSULTATION: Dr. Shreyas Villa of Cardiology. PROCEDURE: Cardiac catheterization on 11/21/19. DISCHARGE MEDICATIONS: 1. Aspirin 81 mg daily. 2. Clopidogrel 75 mg daily. 3. Atorvastatin 40 mg daily. 4. Lisinopril 5 mg daily. 5. Metoprolol succinate 25 mg daily. 6. Nitroglycerin 0.4 mg sublingual every 5 minutes as needed for chest pain. 7. Duloxetine 30 mg daily. 8. Metformin 1000 mg daily. 9. Insulin glargine 12 units daily. 10. Vitamin D 2000 units daily. 11. Tizanidine 4 mg t.i.d. as needed for muscle pain. HISTORY OF PRESENT ILLNESS: Ms. Pinto is a 49-year-old woman with diabetes, on insulin, poorly controlled; morbid obesity; ALANNA, on CPAP; active tobacco use and a significant family history for CAD, who is presenting with complaints of chest pain. She states that for years she has had on and off episodes of substernal chest pain, but over the last couple of weeks, these symptoms have increased in frequency. She states that the pain typically lasts 5 to 10 minutes and goes away on its own. On morning of presentation, she woke up and while she was in the shower, she developed centrally located chest pain, described as a pressure and tight sensation in her chest. The pain radiated up to her neck and was associated with nausea. 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 HOSPITAL COURSE: In the emergency room, the patient's chest pain completely resolved with nitro and by the time of evaluation by hospitalist, she was chest pain-free. She was noted to have an initial troponin of 0, however, on repeat was 0.6 and she was admitted to the hospitalist service for serial troponins and Cardiac consult. Her EKG was without concerning changes. She was loaded with aspirin and Cardiology planned to perform cardiac cath the next day. The patient's troponin continued to increase overnight peaking at 1.58. Just before that time, the patient's chest pain did recur, although it was a left upper quadrant pain that radiated to the chest and was again associated with nausea. EKG was again unchanged. After nitro paste was placed, the patient was noted to be asleep with her CPAP machine on, and in no acute distress and by next morning, her pain again was completely resolved. She underwent a cardiac catheterization which revealed coronary artery circulation right dominant with left main normal with 0% stenosis, LAD normal with 0% stenosis and similar for left circumflex and right coronary. Cardiology consult did consider this to be an NSTEMI but mild enough to have not resulted in more prominent circulation deficits. They recommended Plavix for 6 months as well as aspirin, statin, RON inhibitor and beta-darrius, likely indefinitely. The patient was also educated that she needs to pursue significant efforts towards blood glucose control and weight reduction to lower her risk of further cardiac events. She was also encouraged to quit smoking as this is likely the #1 lifestyle factor that could significantly impact her health. PHYSICAL EXAM: Afebrile, heart rate 69, blood pressure 168/70, respiratory rate 16, oxygen saturation 99% on room air. In general, she is a well- appearing woman in no acute distress, who is alert and interactive, answers all questions appropriately, very pleasant. Neck: No JVD, supple. HEENT with PERRL. OP clear. Moist mucus membranes. Lungs: Clear to auscultation bilaterally. Heart: Regular rate and rhythm. No murmurs, gallops, or rubs. Abdomen: Soft, nontender, nondistended. Lower extremities: Warm and well perfused without evidence of edema. Neuro: CN II through XII intact with strength 5/5 in all extremities. Skin: Warm and dry without rashes. PERTINENT DIAGNOSTIC STUDIES/LAB DATA: CBC with microcytosis without evidence of anemia. BMP notable for hyponatremia to 132 which appears to be common for this patient. Hemoglobin A1c 8.8%. Troponin peaked out 1.58. BNP 26. Chest x-ray with mild pulmonary vascular congestion. EKG with normal sinus rhythm with no acute ischemic changes. Transthoracic echocardiogram with LV systolic function normal with EF 55% to 60% . No regional wall motion abnormalities. RV systolic function normal. MV without regurgitation. AV without stenosis. PASP cannot be accurately estimated. Compared with study from 2015, there is no change. DISCHARGE PLAN: The patient will be discharged to follow up with her primary care physician as well as Dr. Shreyas Villa of Cardiology, who took care of her while she was in the hospital. For newly diagnosed coronary artery disease with admission for myocardial infarction, she was initiated on dual antiplatelets, statin, lisinopril and metoprolol. She should follow up with Cardiology after discharge. Her Plavix should be continued for 6 weeks and the other medications indefinitely. The patient requires aggressive risk factor management, for example her blood pressure and blood sugar were significantly elevated during admission. She also should pursue smoking cessation efforts. Hypertension, appears this is a new diagnosis. The patient was initiated on lisinopril and this should continue to be titrated by her outpatient primary care physician. For diabetes, her hemoglobin A1c resulted 8.8% which is above goal and she should continue to check her blood glucose at home and bring a log of this to her primary care physician for optimization of her diabetes medications, for example, she likely should have her metformin dose increased. She should also be considered for liraglutide or another GLP-1 agonist. The patient should have already been on statin for her diabetes and age above 40 and this has been initiated this hospitalization. DIET: Healthy diet, low in processed foods and low in carbohydrates for weight loss and blood glucose control. ACTIVITY: As tolerated. DISPOSITION: To home. CONDITION: Improved. TIME SPENT: Approximately 60 minutes was spent on discharge of this patient, more than half of which was spent with care coordination at bedside for interview and exam. [id number]/[facility] #: [id number] SCOTT
[2019-11-22] MEDS ORDERED: Clopidogrel TAB* 75 MG PO SCH (09:00)
== END 2019-11-21 17:00 | disposition home or self-care (01) | DRG 190 ==
LOC: ED 12:11 → MEDTELE 16:58
PROVIDERS: ADMIT Hospitalist; ATTEND Internal Medicine
PROC: 4A023N7 Measurement of Cardiac Sampling and Pressure, Left Heart, Percutaneous Approach (ICD-10-PCS; principal; 2019-11-20)
PROC: B2111ZZ Fluoroscopy of Multiple Coronary Arteries using Low Osmolar Contrast (ICD-10-PCS; 2019-11-20)
PROC: 5A09357 Assistance with Respiratory Ventilation, Less than 24 Consecutive Hours, Continuous Positive Airway Pressure (ICD-10-PCS; 2019-11-20)
DX: I21.4 Non-ST elevation (NSTEMI) myocardial infarction (principal); Z68.43 Body mass index [BMI] 50.0-59.9, adult; G47.33 Obstructive sleep apnea (adult) (pediatric); I25.10 Atherosclerotic heart disease of native coronary artery without angina pectoris; I10 Essential (primary) hypertension; E11.40 Type 2 diabetes mellitus with diabetic neuropathy, unspecified; E78.5 Hyperlipidemia, unspecified; E78.00 Pure hypercholesterolemia, unspecified; J44.9 Chronic obstructive pulmonary disease, unspecified; K57.90 Diverticulosis of intestine, part unspecified, without perforation or abscess without bleeding; M17.0 Bilateral primary osteoarthritis of knee; M16.0 Bilateral primary osteoarthritis of hip; G89.29 Other chronic pain; M54.5 Low back pain; M51.36 Other intervertebral disc degeneration, lumbar region; H91.91 Unspecified hearing loss, right ear; F32.9 Major depressive disorder, single episode, unspecified; F41.9 Anxiety disorder, unspecified; G43.909 Migraine, unspecified, not intractable, without status migrainosus; F17.210 Nicotine dependence, cigarettes, uncomplicated; E11.65 Type 2 diabetes mellitus with hyperglycemia; E66.01 Morbid (severe) obesity due to excess calories; Z99.89 Dependence on other enabling machines and devices; Z79.4 Long term (current) use of insulin; Z79.82 Long term (current) use of aspirin; Z79.02 Long term (current) use of antithrombotics/antiplatelets; Z88.1 Allergy status to other antibiotic agents; Z91.030 Bee allergy status; Z88.0 Allergy status to penicillin; Z88.8 Allergy status to other drugs, medicaments and biological substances; Z91.048 Other nonmedicinal substance allergy status; Z87.442 Personal history of urinary calculi; Z98.51 Tubal ligation status; Z90.49 Acquired absence of other specified parts of digestive tract; Z86.14 Personal history of Methicillin resistant Staphylococcus aureus infection
CPT/HCPCS: 36415; 71045; 80053; 82465; 83036; 83605; 83880; 84484; 85025; 85730; 93005; 93306; 93454; 94660; 99156; 99157; 99284; A9270-GY; C8929; J1644; J2250; J2405; J3010

== ENCOUNTER 2022-02-19 12:22 | Observation (INO) ==
[2022-02-19] MEDS ORDERED: Morphine 4 MG/ML VIAL (1 ml) IV ONE ×2 (14:14→16:59)
[2022-02-19] MEDS ORDERED: Ondansetron 4 mg VIAL 2 MG/ML 2 ml VIAL IV ONE (14:14)
[2022-02-19 14:24] LABS: ABS Basophils 0.1 10^3/ul (0-0.2); ABS Eosinophils 0.2 10^3/ul (0-0.6); ABS Lymphocytes 2.2 10^3/ul (1.0-4.8); ABS Monocytes 0.7 10^3/ul (0-0.8); ABS Neutrophils 7.1 10^3/ul (1.5-7.7); Eosinophil % 2.1 %; Hematocrit 47 % (35-47); Hemoglobin 15.9 g/dL (12.0-16.0); Lymphocyte % 21.5 %; Mean Corpuscular HGB Conc 34 g/dL (31-36); Mean Corpuscular Hemoglobin 29 pg (27-31); Mean Corpuscular Volume 87 fL (80-97); Mean Platelet Volume 8.7 fL (7.4-10.4); Platelet Count 202 10^3/uL (150-450); Red Blood Count 5.43 10^6 /uL (3.70-4.87); Red Cell Distribution Width 15 % (10-15); White Blood Count 10.4 10^3/uL (3.5-10.8)
[2022-02-19 15:19] LABS: Albumin 4.2 g/dL (3.2-5.2); Albumin/Globulin Ratio 1.4 (1-3); C Reactive Protein 23.45 mg/L (<8.01); Calcium 9.2 mg/dL (8.6-10.3); Globulin 2.9 g/dL (2-4); Potassium 3.9 mmol/L (3.5-5.0); Total Bilirubin 0.6 mg/dL (0.2-1.0); Total Protein 7.1 g/dL (6.4-8.9); eGFR CKD-EPI 108.7 (>60)
[2022-02-19] MEDS ORDERED: metroNIDAZOLE IV 500 MG/100ML 500 MG/100 ML BAG IVPB ONE (16:59)
[2022-02-19] MEDS ORDERED: Ciprofloxacin 400mg IVPREMIX 400 MG/200 ML BAG IVPB ONE (16:59)
[2022-02-19 17:00] LABS: Urine Appearance Cloudy; Urine Bilirubin Negative (Negative); Urine Blood Negative (Negative); Urine Color Straw; Urine Glucose Negative (Negative); Urine Ketones Negative (Negative); Urine Nitrite Negative (Negative); Urine Protein Negative (Negative); Urine Specific Gravity 1.002 (1.002-1.030); Urine Urobilinogen Negative (Negative)
[2022-02-19] MEDS ORDERED: cefTRIAXone 2 gm/50 mL D5W 2 GM/50 ML BAG IV ONE (19:45)
[2022-02-19 20:00] LABS: HDL Cholesterol 35.2 mg/dL
[2022-02-19] MEDS: oxyCODONE/Acetamin 5/325 mg TAB PO PRN (20:09)
[2022-02-19] MEDS ORDERED: Lactated Ringers 1000 ml BAG 1,000 ML IV SCH (21:00)
[2022-02-19] MEDS: Ondansetron 4 mg VIAL 2 MG/ML 2 ml VIAL IV PRN (21:28)
[2022-02-19] MEDS ORDERED: Zosyn per Pharmacy NOTE FOLLOW UP SCH (23:00)
[2022-02-20] MEDS: oxyCODONE/Acetamin 5/325 mg TAB PO PRN ×4 (00:11→14:15)
[2022-02-20] MEDS ORDERED: Piperacillin/Tazobac ADVAN 3.375 GM in NS 0.9% 100 ml BAG 100 ML IV ONE (04:00)
[2022-02-20] MEDS: Ondansetron 4 mg VIAL 2 MG/ML 2 ml VIAL IV PRN ×3 (05:29→18:00)
[2022-02-20] MEDS ORDERED: Dextrose 50% Syringe 50 ml 25 GM/50 ML SYRINGE IV PUSH PRN (06:05)
[2022-02-20 06:32] LABS: ABS Basophils 0.1 10^3/ul (0-0.2); ABS Eosinophils 0.2 10^3/ul (0-0.6); ABS Lymphocytes 1.7 10^3/ul (1.0-4.8); ABS Monocytes 0.7 10^3/ul (0-0.8); ABS Neutrophils 5.5 10^3/ul (1.5-7.7); Eosinophil % 2.3 %; Hematocrit 44 % (35-47); Hemoglobin 14.7 g/dL (12.0-16.0); Lymphocyte % 20.5 %; Mean Corpuscular HGB Conc 33 g/dL (31-36); Mean Corpuscular Hemoglobin 29 pg (27-31); Mean Corpuscular Volume 88 fL (80-97); Mean Platelet Volume 8.7 fL (7.4-10.4); Nucleated Red Blood Cells % 0.1; Platelet Count 176 10^3/uL (150-450); Red Cell Distribution Width 15 % (10-15); White Blood Count 8.1 10^3/uL (3.5-10.8)
[2022-02-20 07:09] LABS: Calcium 8.7 mg/dL (8.6-10.3); Magnesium 1.7 mg/dL (1.9-2.7); eGFR CKD-EPI 107.9 (>60)
[2022-02-20] MEDS ORDERED: Magnesium Sulfate IV 3 GM in NS 0.9% 100 ml BAG 100 ML IVPB ONE (07:32)
[2022-02-20] MEDS ORDERED: Magnesium Sulfate 2 GM IV (Premix) IVPB ONE (08:00)
[2022-02-20] MEDS ORDERED: Magnesium Sulfate 1 GM IV 1 GM/100 ML BAG IV ONE (08:00)
[2022-02-20] MEDS: ZOSYN 3.375 GM Q8H per EXTENDED INFUSION IV SCH ×2 (10:03→16:56)
[2022-02-20] MEDS ORDERED: Lorazepam PYXIS KEY PRN (12:00)
[2022-02-20] MEDS ORDERED: LORazepam 2 mg VIAL 1 ml IV PUSH ONE (12:01)
[2022-02-20] MEDS: Nicotine PATCH 21 MG/24 HR PATCH TRANSDERM SCH (12:11)
[2022-02-20] MEDS: Morphine 2 MG/ML SYRINGE IV PRN ×2 (12:49→19:18)
[2022-02-20] MEDS ORDERED: Magnesium Hydroxide LIQ 30 ML UDC PO ONE (13:11)
[2022-02-20] MEDS ORDERED: cefTRIAXone 2 gm/50 mL D5W 2 GM/50 ML BAG IV SCH (20:00)
[2022-02-21] MEDS: Ondansetron 4 mg VIAL 2 MG/ML 2 ml VIAL IV PRN (00:40)
[2022-02-21] MEDS: ZOSYN 3.375 GM Q8H per EXTENDED INFUSION IV SCH ×3 (00:40→16:56)
[2022-02-21] MEDS: Morphine 2 MG/ML SYRINGE IV PRN ×4 (01:20→21:00)
[2022-02-21 06:57] LABS: ABS Eosinophils 0.2 10^3/ul (0-0.6); ABS Lymphocytes 1.7 10^3/ul (1.0-4.8); ABS Monocytes 0.6 10^3/ul (0-0.8); ABS Neutrophils 4.4 10^3/ul (1.5-7.7); Eosinophil % 2.8 %; Hematocrit 44 % (35-47); Hemoglobin 14.7 g/dL (12.0-16.0); Lymphocyte % 24.8 %; Mean Corpuscular HGB Conc 34 g/dL (31-36); Mean Corpuscular Hemoglobin 30 pg (27-31); Mean Corpuscular Volume 88 fL (80-97); Mean Platelet Volume 8.9 fL (7.4-10.4); Platelet Count 191 10^3/uL (150-450); Red Blood Count 4.93 10^6 /uL (3.70-4.87); Red Cell Distribution Width 14 % (10-15); White Blood Count 6.8 10^3/uL (3.5-10.8)
[2022-02-21] MEDS: Nicotine PATCH 21 MG/24 HR PATCH TRANSDERM SCH (07:34)
[2022-02-21 07:47] LABS: Magnesium 2.2 mg/dL (1.9-2.7); Potassium 4.5 mmol/L (3.5-5.0); eGFR CKD-EPI 102.4 (>60)
[2022-02-21] MEDS ORDERED: oxyCODONE/Acetamin 5/325 mg TAB PO PRN (11:16)
[2022-02-21] MEDS ORDERED: LORazepam 2 mg VIAL 1 ml IV PUSH ONE (15:30)
[2022-02-21] MEDS ORDERED: Lorazepam PYXIS KEY PRN (15:30)
[2022-02-22] MEDS: ZOSYN 3.375 GM Q8H per EXTENDED INFUSION IV SCH ×2 (00:44→08:47)
[2022-02-22] MEDS: Nicotine PATCH 21 MG/24 HR PATCH TRANSDERM SCH (08:47)
[2022-02-22 12:13] VITALS: BP 169/71
== END 2022-02-22 13:15 | disposition home or self-care (01) ==
LOC: ED 12:22 → EDHOLD 12:22 → SUATTDRO 19:11 → MED 22:00
PROVIDERS: ADMIT Internal Medicine; ATTEND Internal Medicine

== ENCOUNTER 2022-05-06 06:08 | Inpatient (IN) ==
[~2022-05-06 06:08] MED LIST: Buffered Lidocaine 1% SYRIN 1 ml INTRADERM ONE; Lactated Ringers 1000 ml BAG 1,000 ML IV SCH; Scopolamine 1 mg/72hr PATCH TRANSDERM ONE
[2022-05-06] MEDS ORDERED: Scopolamine 1 mg/72hr PATCH ONE (06:54)
[2022-05-06] MEDS ORDERED: Dexamethasone IV 4 MG/ML VIAL 1 ml VIAL ONE (06:55)
[2022-05-06] MEDS ORDERED: Lidocaine 2% PF 5 ML VIAL ONE (06:55)
[2022-05-06] MEDS ORDERED: Ondansetron 4 mg VIAL 2 MG/ML 2 ml VIAL ONE ×2 (06:55→18:10)
[2022-05-06] MEDS ORDERED: Clindamycin 900 MG/D5W BAG 900 MG/50 ML BAG IVPB ONE (06:55)
[2022-05-06] MEDS ORDERED: Propofol 10 MG/ML 20 ML BTL ONE (06:55)
[2022-05-06] MEDS ORDERED: Rocuronium 50 mg VIAL 10 mg/ml 5 ml VIAL (50 mg) ONE ×4 (06:55→11:41)
[2022-05-06] MEDS ORDERED: Midazolam 2 mg/2 ml VIAL 1 mg/ml 2 ml VIAL (2 mg) ONE (06:56)
[2022-05-06] MEDS ORDERED: fentaNYL 100 mcg/2 ml 50 MCG/ML VIAL ONE ×3 (06:56→14:31)
[2022-05-06] MEDS ORDERED: Lidocaine 4 MG/ML IV PREMIX 2,000 MG/500 ML BAG IV ONE (07:06)
[2022-05-06] MEDS ORDERED: NS 0.9% IVPB ONE (07:30)
[2022-05-06] MEDS ORDERED: GENTAMICIN ADULT IVPB ONE (07:30)
[2022-05-06] MEDS ORDERED: Phenylephrine IV 10 MG/ML 1 ml VIAL ONE (08:17)
[2022-05-06] MEDS ORDERED: Labetalol IV 5 MG/ML 20 ml VIAL ONE (08:33)
[2022-05-06] MEDS ORDERED: Albuterol HFA INHALER 8 gm MDI INH ONE (08:48)
[2022-05-06] MEDS ORDERED: Naloxone 0.4 mg VIAL 0.4 mg/ml 1 ml VIAL IV PRN (10:30)
[2022-05-06] MEDS ORDERED: Haloperidol 5 mg/ml SDV IV/IM 5 MG/ML AMP IV SLOW PU PRN (10:30)
[2022-05-06] MEDS ORDERED: Lidocaine 4 MG/ML IV PREMIX 200 MG/50 ML BAG IV SCH (11:00)
[2022-05-06] MEDS ORDERED: Sterile Water for Inj 10 ML ONE (11:53)
[2022-05-06] MEDS ORDERED: Sevoflurane BOTTLE ONE (11:57)
[2022-05-06] MEDS ORDERED: Sugammadex 500 MG/5 ML 5 ml VIAL IV PUSH ONE (13:48)
[2022-05-06] MEDS ORDERED: Naloxone 0.4 mg VIAL 0.4 mg/ml 1 ml VIAL IV PUSH PRN (14:29)
[2022-05-06] MEDS: fentaNYL 100 mcg/2 ml 50 MCG/ML VIAL IV PRN ×3 (14:32→15:38)
[2022-05-06] MEDS ORDERED: Haloperidol 5 mg/ml SDV IV/IM 5 MG/ML AMP ONE (14:34)
[2022-05-06] MEDS ORDERED: Dextrose 50% Syringe 50 ml 25 GM/50 ML SYRINGE IV PUSH PRN (14:36)
[2022-05-06] MEDS: HYDROmorphone PCA 20 MG/20 ML PCA.SYRING PCA SCH (15:05)
[2022-05-06] MEDS ORDERED: hydrALAZINE 20 mg/ml 1 ML Vial IV ONE (16:17)
[2022-05-06] MEDS: hydrALAZINE 20 mg/ml 1 ML Vial IV IV SLOW PU PRN ×3 (16:19→20:53)
[2022-05-06] MEDS: Lactated Ringers 1000 ml BAG 1,000 ML IV SCH (17:50)
[2022-05-06] MEDS: Ondansetron 4 mg VIAL 2 MG/ML 2 ml VIAL IV PRN (18:15)
[2022-05-06] MEDS: Metoclopramide 5 MG/ML VIAL (10 mg) IV PRN (23:26)
[2022-05-07] MEDS: Lactated Ringers 1000 ml BAG 1,000 ML IV SCH ×4 (03:38→23:26)
[2022-05-07 06:51] LABS: ABS Lymphocytes 1.8 10^3/ul (1.0-4.8); ABS Monocytes 1.1 10^3/ul (0-0.8); ABS Neutrophils 13.8 10^3/ul (1.5-7.7); Eosinophil % 0.1 %; Hematocrit 43 % (35-47); Hemoglobin 14.3 g/dL (12.0-16.0); Lymphocyte % 10.5 %; Mean Corpuscular HGB Conc 34 g/dL (31-36); Mean Corpuscular Hemoglobin 30 pg (27-31); Mean Corpuscular Volume 88 fL (80-97); Mean Platelet Volume 8.7 fL (7.4-10.4); Platelet Count 231 10^3/uL (150-450); Red Blood Count 4.82 10^6 /uL (3.70-4.87); Red Cell Distribution Width 15 % (10-15); White Blood Count 16.7 10^3/uL (3.5-10.8)
[2022-05-07 07:21] LABS: Calcium 9.1 mg/dL (8.6-10.3); Magnesium 1.7 mg/dL (1.9-2.7); Phosphorus 4.7 mg/dL (2.5-5.0); Potassium 4.1 mmol/L (3.5-5.0); eGFR CKD-EPI 110.9 (>60)
[2022-05-07] MEDS ORDERED: Magnesium Sulfate 2 gm BAG 2 GM/50 ML BAG IVPB ONE (08:19)
[2022-05-07] MEDS: Nicotine PATCH 21 MG/24 HR PATCH TRANSDERM SCH (09:19)
[2022-05-07] MEDS: HYDROmorphone PCA 20 MG/20 ML PCA.SYRING PCA SCH (12:41)
[2022-05-07] MEDS: Heparin 5000 UNITS/ML 1 mL VIAL SUBCUT SCH ×2 (13:57→22:14)
[2022-05-07] MEDS: Metoclopramide 5 MG/ML VIAL (10 mg) IV PRN (22:21)
[2022-05-08] MEDS: Heparin 5000 UNITS/ML 1 mL VIAL SUBCUT SCH ×3 (05:34→23:34)
[2022-05-08] MEDS: Metoclopramide 5 MG/ML VIAL (10 mg) IV PRN ×2 (06:02→16:05)
[2022-05-08 06:14] LABS: Hematocrit 40 % (35-47); Hemoglobin 13.3 g/dL (12.0-16.0); Mean Corpuscular HGB Conc 34 g/dL (31-36); Mean Corpuscular Hemoglobin 30 pg (27-31); Mean Corpuscular Volume 89 fL (80-97); Mean Platelet Volume 8.7 fL (7.4-10.4); Platelet Count 218 10^3/uL (150-450); Red Blood Count 4.48 10^6 /uL (3.70-4.87); Red Cell Distribution Width 15 % (10-15); White Blood Count 10.7 10^3/uL (3.5-10.8)
[2022-05-08 06:34] LABS: Calcium 8.7 mg/dL (8.6-10.3); Magnesium 1.6 mg/dL (1.9-2.7); Phosphorus 2.7 mg/dL (2.5-5.0); eGFR CKD-EPI 115.5 (>60)
[2022-05-08] MEDS: Nicotine PATCH 21 MG/24 HR PATCH TRANSDERM SCH (09:14)
[2022-05-08] MEDS: Ondansetron 4 mg VIAL 2 MG/ML 2 ml VIAL IV PRN ×2 (10:21→18:26)
[2022-05-08] MEDS: HYDROmorphone PCA 20 MG/20 ML PCA.SYRING PCA SCH (11:04)
[2022-05-08] MEDS: D5W 1/2 NS 1000 ml BAG 1,000 ML IV SCH ×2 (12:01→23:11)
[2022-05-09 05:37] LABS: ABS Eosinophils 0.2 10^3/ul (0-0.6); ABS Lymphocytes 2.3 10^3/ul (1.0-4.8); ABS Monocytes 0.7 10^3/ul (0-0.8); ABS Neutrophils 4.7 10^3/ul (1.5-7.7); Eosinophil % 2.5 %; Hematocrit 41 % (35-47); Hemoglobin 13.5 g/dL (12.0-16.0); Lymphocyte % 29.6 %; Mean Corpuscular HGB Conc 33 g/dL (31-36); Mean Corpuscular Hemoglobin 29 pg (27-31); Mean Corpuscular Volume 89 fL (80-97); Mean Platelet Volume 8.5 fL (7.4-10.4); Platelet Count 219 10^3/uL (150-450); Red Blood Count 4.59 10^6 /uL (3.70-4.87); Red Cell Distribution Width 15 % (10-15); White Blood Count 7.9 10^3/uL (3.5-10.8)
[2022-05-09] MEDS: HYDROmorphone PCA 20 MG/20 ML PCA.SYRING PCA SCH (05:42)
[2022-05-09] MEDS: Heparin 5000 UNITS/ML 1 mL VIAL SUBCUT SCH ×3 (05:55→21:28)
[2022-05-09 06:05] LABS: Calcium 8.9 mg/dL (8.6-10.3); Potassium 3.7 mmol/L (3.5-5.0); eGFR CKD-EPI 113.8 (>60)
[2022-05-09] MEDS ORDERED: HYDROmorphone 1 MG/1 ML SYRINGE IV SLOW PU PRN (08:29)
[2022-05-09] MEDS: D5W 1/2 NS 1000 ml BAG 1,000 ML IV SCH (09:09)
[2022-05-09] MEDS: Nicotine PATCH 21 MG/24 HR PATCH TRANSDERM SCH (09:11)
[2022-05-09] MEDS: Metoclopramide 5 MG/ML VIAL (10 mg) IV PRN ×3 (09:39→23:41)
[2022-05-09] MEDS: Ondansetron 4 mg VIAL 2 MG/ML 2 ml VIAL IV PRN (12:53)
[2022-05-09] MEDS: HYDROmorphone 0.5 MG/0.5 ML SYRINGE IV SLOW PU PRN (16:41)
[2022-05-09] MEDS: Acetaminophen IV 1 GM/100ML 1,000 MG/100 ML BAG IV PRN (21:15)
[2022-05-10] MEDS: HYDROmorphone 0.5 MG/0.5 ML SYRINGE IV SLOW PU PRN ×2 (03:20→20:03)
[2022-05-10] MEDS: hydrALAZINE 20 mg/ml 1 ML Vial IV IV SLOW PU PRN (03:27)
[2022-05-10] MEDS: Heparin 5000 UNITS/ML 1 mL VIAL SUBCUT SCH ×3 (05:59→21:04)
[2022-05-10] MEDS: Nicotine PATCH 21 MG/24 HR PATCH TRANSDERM SCH (07:54)
[2022-05-10] MEDS: D5W 1/2 NS 1000 ml BAG 1,000 ML IV SCH (08:00)
[2022-05-10] MEDS: Acetaminophen IV 1 GM/100ML 1,000 MG/100 ML BAG IV PRN ×2 (08:47→15:56)
[2022-05-10] MEDS: Metoclopramide 5 MG/ML VIAL (10 mg) IV PRN (20:13)
[2022-05-11] MEDS: Ondansetron 4 mg VIAL 2 MG/ML 2 ml VIAL IV PRN (00:06)
[2022-05-11] MEDS: HYDROmorphone 0.5 MG/0.5 ML SYRINGE IV SLOW PU PRN ×2 (00:06→06:05)
[2022-05-11] MEDS: Heparin 5000 UNITS/ML 1 mL VIAL SUBCUT SCH (06:02)
[2022-05-11] MEDS: Metoclopramide 5 MG/ML VIAL (10 mg) IV PRN (06:11)
[2022-05-11] MEDS: Nicotine PATCH 21 MG/24 HR PATCH TRANSDERM SCH (09:06)
[2022-05-11 11:42] VITALS: BP 125/82
== END 2022-05-11 12:45 | disposition home or self-care (01) | DRG 221 ==
LOC: AA 06:08 → SSU 17:31
PROVIDERS: ADMIT Surgery; ATTEND Surgery